=== PATIENT | male | born 1955 | race African-American/Black ===

== ENCOUNTER 2016-05-16 14:41 | Emergency (ER) | payer OTHER ==
[2016-05-16] MEDS ORDERED: Ketorolac INJ* 30 MG/ML 1 ML VIAL IV ONE (15:23)
[2016-05-16] MEDS ORDERED: HYDROmorphone TAB* 2 MG PO ONE (15:23)
[2016-05-16] MEDS ORDERED: Tamsulosin CAP* 0.4 MG PO ONE (15:23)
[2016-05-16] MEDS: NS 0.9% 1000 ML* 2,000 ML IV ONE ×2 (15:57→17:07)
--- NOTE | 2016-05-16 16:17 | UC ---
Abdominal Pain Male HPI - HPI Summary HPI Summary: Patient arrives to ED from correctional facility with history of renal calculi with CC of right sided back pain which radiates to right groin. Pain began approx 4 hours ago, is intermittent and severe. He denies known passage of stone. He denies urinary symptoms. He denies known fever, weakness, MORAN or feeling ill recently. Patient smokes. Patient with cardiac history with previous NV and diabetes. - History of Current Complaint Chief Complaint: EDFlankPain Stated Complaint: RT FLANK PAIN Time Seen by Provider: 05/16/16 15:17 Hx Obtained From: Patient Onset/Duration: Sudden Onset Timing: Intermittent Episodes Lasting: - several minutes Severity Initially: Moderate Severity Currently: Moderate Pain Intensity: 7 Pain Scale Used: 0-10 Numeric Location: Other - right flank Radiates to: RLQ Character: Burning, Colicy, Cramping Alleviating Factor(s): Nothing Associated Signs And Symptoms: Positive: Diaphoresis - Risk Factors Testicular Torsion: Negative Cardiac Risk Factors: Smoking - Allergies/Home Medications Allergies/Adverse Reactions: Allergies Allergy/AdvReac Type Severity Reaction Status Date / Time No Known Allergies Allergy Verified 05/11/13 12:13 PMH/Surg Hx/FS Hx/Imm Hx Endocrine History Of: Reports: Diabetes Cardiovascular History Of: Reports: Cardiac Disorders - MIx3, no stents, Myocardial Infarction Denies: Hypertension, Congestive Heart Failure, Deep Vein Thrombosis Respiratory History Of: Reports: COPD, Asthma GI/ History Of: Denies: Renal Disease Neurological History Of: Reports: CVA - 2006 weakness on right side, Seizures, Migraine Psychological History Of: Reports: Bipolar Disorder - Surgical History Surgical History: Yes Surgery Procedure, Year, and Place: Appy 1974, papillomas removal 11 surgeries, last one was in 1970 - Family History Known Family History: Positive: Unknown - Social History Occupation: Unemployed Lives: Alone - correctional facility Alcohol Use: None Substance Use Type: None, Other Smoking Status (MU): Former Smoker Type: Cigarettes Have You Smoked in the Last Year: No - Immunization History Most Recent Influenza Vaccination: 2014 Most Recent Tetanus Shot: unk Most Recent Pneumonia Vaccination: "up to date", received at 5 points Review of Systems Constitutional: Negative Respiratory: Negative Cardiovascular: Negative Gastrointestinal: Abdominal Pain Genitourinary: Negative, Other - right flank pain radiating to right inguinal canal Neurovascular: Negative Musculoskeletal: Negative Neurological: Negative Psychological: Negative All Other Systems Reviewed And Are Negative: Yes Physical Exam Triage Information Reviewed: Yes Appearance: Well-Nourished, Pain Distress Vital Signs: Initial Vital Signs Temp 98.4 F 05/16/16 14:47 Pulse 88 05/16/16 14:47 Resp 20 05/16/16 14:47 BP 156/88 05/16/16 14:47 Pulse Ox 99 05/16/16 14:47 Vital Signs Reviewed: Yes Eyes: Positive: Conjunctiva Clear Neck exam: Normal Neck: Positive: Supple, No Lymphadenopathy Respiratory: Positive: Chest non-tender, Lungs clear Cardiovascular: Positive: RRR Abdomen Description: Positive: No Organomegaly, Soft, CVA Tenderness (R) Bowel Sounds: Positive: Present Musculoskeletal Exam: Normal Musculoskeletal: Positive: Strength Intact Neurological Exam: Normal Neurological: Positive: Alert Psychological: Positive: Age Appropriate Behavior Skin Exam: Normal Diagnostics - Radiology No standard instances Xray Interpretation: No Acute Changes Radiology Interpretation Completed By: Radiologist - CT Abd Pain Male Course/Dx - Course Course Of Treatment: Patient arrives with right flank pain radiating to right suprapubic area and inguinal canal. Hx of renal calculi. Pain is intermittent and severe with colicky pain. CT abd/pelvis shows no renal calculi or hydronephrosis. Tamsulosin, toradol, dilaudid given for relief. Patient felt relief. Pain began again 30 minutes later with more dilauded given. Strained urine. UA is normal. D/t no calculi seen and normal urine, will send home with strainer, flomax and encouraged ibuprofen. - Differential Dx/Clinical Impression Differential Diagnosis/HQI/PQRI: Epididymitis, Renal Colic, Ureteral Stone Provider Diagnoses: flank pain Discharge - Discharge Plan Condition: Stable Disposition: HOME Prescriptions: Naproxen [Naproxen EC] 500 mg PO TID PRN #15 tab PRN Reason: Pain Tamsulosin CAP* [Flomax CAP*] 0.4 mg PO BEDTIME #14 cap Patient Education Materials: Renal Colic (ED) Referrals: Arturo GUERRERO,Jsoe Busch [Primary Care Provider] - Additional Instructions: You are able to take Naproxen 500mg three times daily as needed for pain and inflammation. Take Tamsoulosin medication at bedtime for 14 days. If symptoms persist, worsen, you develop fever or urinary symptoms, come back to ED.
[2016-05-16 16:19] LABS: Hematocrit 39 % (42-52); Hemoglobin 12.8 g/dl (14.0-18.0); Mean Corpuscular HGB Conc 33 g/dl (31-36); Mean Corpuscular Hemoglobin 27 pg (27-31); Mean Corpuscular Volume 83 fL (80-94); Mean Platelet Volume 6 um3 (7.4-10.4); Red Blood Count 4.69 10^6/ul (4.0-5.4); Red Cell Distribution Width 13 % (10.5-15); White Blood Count 5.5 10^3/ul (3.5-10.8)
[2016-05-16 16:26] LABS: Albumin 3.7 g/dL (3.2-5.2); BUN/Creatinine Ratio 8.8 (8-20); Calcium 8.9 mg/dL (8.6-10.3); EGFR African American 62.8 (>60); EGFR Non-African American 48.8 (>60); Globulin 3.4 g/dL (2-4); Potassium 3.9 mmol/L (3.5-5.0); Total Bilirubin 0.3 mg/dL (0.2-1.0); Total Protein 7.1 g/dL (6.4-8.9)
[2016-05-16] MEDS ORDERED: HYDROmorphone INJ* 1 MG/ML CARPUJECT SYRINGE IV SLOW PU ONE (17:19)
[2016-05-16] MEDS ORDERED: HYDROmorphone INJ* 2 MG/ML CARPUJECT SYRINGE IV SLOW PU ONE (17:19)
--- NOTE | 2016-05-16 18:50 | RAD ---
CLINICAL HISTORY: Right flank pain. Relevant surgical history includes appendectomy 1974. COMPARISON: Most recent CT examination is dated May 11, 2013 TECHNIQUE: Noncontrast CT examination of the abdomen and pelvis from the lung bases through the initial tuberosities. FINDINGS: VISUALIZED LUNG BASES: Hypoventilatory changes at the left lung base are similar in appearance to the previous CT examination. Otherwise the visualized lung bases are grossly clear. There is no pleural effusion. ABDOMEN AND PELVIS: Evaluation of the solid organs and vasculature is limited without intravenous contrast. A small hiatal hernia is noted. The liver, spleen, pancreas and adrenal glands are grossly normal in appearance. A stable calcified granulomas noted in the posterior superior portion of the spleen. The gallbladder is normal. The kidneys are normal in appearance without focal mass, calcification or signs of hydronephrosis. Evaluation of the gastrointestinal tract is limited in the absence of oral contrast. The small and large bowel are not distended.The patient's normal appendix is identified in the right lower quadrant. There is no gross retroperitoneal or mesenteric lymphadenopathy. The pelvic viscera is normal in appearance. A left-sided fat-containing hernias noted. The mildly calcified abdominal aorta and iliac arteries are normal in course and diameter. Degenerative changes include multilevel loss of intervertebral disc height involving the lower thoracic and lumbar spine, nonspecific straightening as well as multilevel marginal osteophyte formation.There are no sinister bone lesions. IMPRESSION: 1. No renal calculi or signs of hydronephrosis. 2. Chronic, degenerative and iatrogenic findings as described in the body the report, none of which wouldn't necessarily account for the patient's current symptoms.
[2016-05-16 19:16] LABS: Urine Bilirubin Negative (Negative); Urine Glucose Negative (Negative); Urine Nitrite Negative (Negative)
[2016-05-16 20:01] VITALS: BP 148/78
== END 2016-05-16 20:00 | disposition home or self-care (01) ==
LOC: ED 14:41
DX: R10.31 Right lower quadrant pain (principal); N20.0 Calculus of kidney; R61 Generalized hyperhidrosis; Z87.891 Personal history of nicotine dependence
CPT/HCPCS: 36415; 74176; 80053; 81003; 85025; 96374; 96375; 99283; A9270-GY; J1170; J1885

== ENCOUNTER 2017-08-20 10:52 | Emergency (ER) | payer OTHER ==
[2017-08-20] MEDS ORDERED: Ondansetron INJ* 2 MG/ML VIAL IV ONE (11:12)
[2017-08-20] MEDS ORDERED: NS 0.9% 1000 ML* 1,000 ML IV ONE ×2 (11:12→15:32)
[2017-08-20] MEDS ORDERED: Ondansetron ODT TAB* 4 MG ONE (11:36)
[2017-08-20] MEDS ORDERED: Metoclopramide IV* 5 MG/ML 2 ML VIAL IV ONE (11:38)
[2017-08-20] MEDS ORDERED: Metoclopramide IV* 5 MG/ML 2 ML VIAL ONE (11:39)
[2017-08-20 11:48] LABS: ABS Basophils 0 10^3/ul (0-0.2); ABS Eosinophils 0 10^3/ul (0-0.6); ABS Lymphocytes 0.1 10^3/ul (1.0-4.8); ABS Monocytes 0 10^3/ul (0-0.8); ABS Neutrophils 18.8 10^3/ul (1.5-7.7); ABS Nucleated RBC 0 10^3/ul; Eosinophil % 0 % (0-6); Hematocrit 40 % (42-52); Hemoglobin 13.2 g/dl (14.0-18.0); Lymphocyte % 0.6 % (25-47); Mean Corpuscular HGB Conc 34 g/dl (31-36); Mean Corpuscular Hemoglobin 28 pg (27-31); Mean Corpuscular Volume 83 fL (80-94); Nucleated Red Blood Cells % 0; Platelet Count 384 10^3/ul (150-450); Red Blood Count 4.75 10^6/ul (4.0-5.4); Red Cell Distribution Width 14 % (10.5-15); White Blood Count 18.9 10^3/ul (3.5-10.8)
[2017-08-20 11:53] LABS: EGFR Non-African American 40.2 (>60)
[2017-08-20] MEDS ORDERED: Iohexol 300* (CONTRAST) 10 ML SDV IV ONE (12:06)
--- NOTE | 2017-08-20 12:48 | RAD ---
HISTORY: Severe abdominal pain COMPARISONS: CT dated May 16, 2016 VIEWS: Frontal and left lateral decubitus views of the abdomen FINDINGS: BOWEL: There is a nonspecific bowel gas pattern, with nondilated small bowel gas noted. There is large amount of stool within colon. Oral contrast is noted within the colon. CALCULI: There are no abnormal calculi. BONES AND SOFT TISSUES: Degenerative changes are noted, with advanced osteoarthritis of the hips. OTHER FINDINGS: The lung bases are clear. There is no appreciable free intraperitoneal gas. IMPRESSION: NONOBSTRUCTIVE BOWEL GAS PATTERN. LARGE AMOUNT OF STOOL WITHIN THE COLON.
--- NOTE | 2017-08-20 14:17 | RAD ---
Indication: Abdominal pain. Contrast: Administered 141.3 ml of VISAPAQUE 320 mg/ml CT of the abdomen and pelvis was performed after oral and IV contrast administration. Coronal and sagittal reconstructed images were obtained. The lung bases demonstrate no pleural fluid, nodules or masses. Heart demonstrates no pericardial effusion. Liver is normal in size. No focal lesions or intrahepatic ductal dilatation is noted. The spleen is normal in size. Calcified granuloma is noted in the spleen. No adrenal masses are noted. Bilateral adrenal hyperplasia is noted. The pancreas demonstrates no mass or pancreatic duct dilatation. The kidneys demonstrate no hydronephrosis. Symmetric nephrograms are present. No focal masses are noted. No retroperitoneal lymphadenopathy is noted. No dilated loops of bowel are noted. Contrast in the right colon is noted. The urinary bladder demonstrates wall thickening. The prostate is enlarged. Multiple low density lesions are noted within the prostate extending to the right seminal vesicle. The possibility of prostate abscess should BE considered. There are small hydrocele is noted. Contrast is noted in the colon. No evidence of intestinal obstruction is noted. No evidence of obstructive uropathy is noted. IMPRESSION: Multiple low density areas within the prostate extending to the right seminal vesicle which is suspicious for prostate abscess. No other masses or fluid collections are noted. Findings discussed with Dr. Beltrán at 1413 hours.
[2017-08-20] MEDS ORDERED: Piperacillin/Tazobac ADVAN(*) 3.375 GM in NS 0.9% 100 ML* 100 ML IVPB ONE (14:37)
[2017-08-20] MEDS ORDERED: Magnesium Oxide TAB* 400 MG PO ONE (15:59)
--- NOTE | 2017-08-20 16:00 | ED ---
Joaquim Olguin Angela, scribed for Osiel Beltrán MD on 08/20/17 at 1128 . Abdominal Pain/Male - HPI Summary HPI Summary: This pt is a 62 y/o male presenting to [facility] via EMS from correctional facility c/o abdominal pain x2 days. Pt describes his abd pain as diffuse. He additionally notes nausea, vomiting, back pain and constipation. Pt states he has not been able to move his bowels for the past 2 days. Per nurse's note, at the [facility] the blood glucose was 354 and the pt was provided with Reg Insulin 8 units SQ. PMHx includes diabetes, HTN. Surgeries: appendectomy in 1975. - History of Current Complaint Chief Complaint: EDAbdPain Stated Complaint: ABD PAIN,HIGH BLOOD SUGAR Time Seen by Provider: 08/20/17 11:11 Hx Obtained From: Patient Onset/Duration: Lasting Days, Still Present Timing: Lasting Days Severity Currently: Severe Pain Intensity: 8 Pain Scale Used: 0-10 Numeric Location: Diffuse Radiates: Yes Radiates to: Back Aggravating Factor(s): Nothing Alleviating Factor(s): Nothing Associated Signs And Symptoms: Positive: Back Pain, Constipation, Nausea, Vomiting. Negative: Fever - Allergies/Home Medications Allergies/Adverse Reactions: Allergies Allergy/AdvReac Type Severity Reaction Status Date / Time No Known Allergies Allergy Verified 05/11/13 12:13 Home Medications: Home Medications Aspirin EC TAB* [Ecotrin EC Low Dose 81 MG*] 81 mg PO DAILY 08/20/17 [History Confirmed 08/20/17] Atorvastatin* [Lipitor*] 10 mg PO DAILY 08/20/17 [History Confirmed 08/20/17] Docusate CAP* [Colace Cap*] 200 mg PO DAILY 08/20/17 [History Confirmed 08/20/17 ] Lisinopril TAB* [Prinivil TAB*] 40 mg PO DAILY 08/20/17 [History Confirmed 08/20] Metoprolol Tartrate TAB* [Lopressor TAB*] 50 mg PO BID 08/20/17 [History Confirmed 08/20/17] Ranitidine TAB (NF) [Zantac TAB (NF)] 150 mg PO BID 08/20/17 [History Confirmed 08/20/17] Triamterene/HCTZ 37.5-25 MG* [Dyazide CAP*] 1 cap PO DAILY 08/20/17 [History Confirmed 08/20/17] carBAMazepine CHEW TAB(*) [TEGretol CHEW TAB(*)] 100 mg PO BID 08/20/17 [ History Confirmed 08/20/17] glipiZIDE TAB.XL* [Glucotrol XL*] 10 mg PO DAILY 08/20/17 [History Confirmed 07/04] PMH/Surg Hx/FS Hx/Imm Hx Endocrine/Hematology History: Reports: Hx Diabetes Denies: Other Endocrine/Hematological Disorders Cardiovascular History: Reports: Hx Angina, Hx Coronary Artery Disease, Hx Hypercholesterolemia, Hx Myocardial Infarction Denies: Hx Congestive Heart Failure, Hx Deep Vein Thrombosis, Hx Hypertension , Hx Valvular Heart Disease, Other Cardiovascular Problems/Disorders Respiratory History: Reports: Hx Asthma, Hx Chronic Obstructive Pulmonary Disease (COPD) Denies: Other Respiratory Problems/Disorders History: Denies: Hx Renal Disease Musculoskeletal History: Reports: Hx Arthritis, Hx Back Problems Denies: Other Musculoskeletal History Sensory History: Reports: Hx Contacts or Glasses - for distance, does not have them on him Opthamlomology History: Reports: Hx Contacts or Glasses - for distance, does not have them on him Neurological History: Reports: Hx Migraine, Hx Seizures Psychiatric History: Reports: Hx Bipolar Disorder, Hx Suicide Attempt - 2000, Hx Substance Abuse - 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 Denies: Other Psychiatric Issues/Disorders - Surgical History Surgery Procedure, Year, and Place: Appy 1974, papillomas removal 11 surgeries, last one was in 1970 Hx Anesthesia Reactions: No Infectious Disease History: No Infectious Disease History: Denies: Hx Tuberculosis, Traveled Outside the [place] in Last 30 Days - Family History Known Family History: Positive: Cardiac Disease - Mother: CAD Family History: Father: Lung CA - Social History Alcohol Use: None Substance Use Type: Reports: None Hx Tobacco Use: No - quit 1.5 yrs ago Smoking Status (MU): Former Smoker Type: Cigarettes Have You Smoked in the Last Year: No Review of Systems Negative: Fever Eyes: Negative ENT: Negative Gastrointestinal: Other - constipation Positive: Abdominal Pain, Vomiting, Nausea Musculoskeletal: Other - back pain Neurological: Negative All Other Systems Reviewed And Are Negative: Yes Physical Exam - Summary Physical Exam Summary: VITAL SIGNS: Reviewed. GENERAL: Patient is a well-developed and nourished male who is lying comfortable in the stretcher. Patient is not in any acute respiratory distress. HEAD AND FACE: Normocephalic and atraumatic. EYES: PERRLA, EOMI x 2, No injected conjunctiva. EARS: Hearing grossly intact. Ear canals and tympanic membranes are WNL. MOUTH: Oropharynx within normal limits. NECK: Supple, trachea is midline, no adenopathy, no JVD. CHEST: Symmetric, no tenderness at palpation LUNGS: Clear to auscultation bilaterally. No wheezing or crackles. CVS: RRR, S1 and S2 present, no murmurs or gallops appreciated. ABDOMEN: Soft. Diffuse abdominal pain with rebound and guarding. No signs of distention. Positive bowel sounds. No masses palpated. No abdominal bruit or pulsations. EXTREMITIES: FROM in all major joints, no edema, no cyanosis or clubbing. NEURO: Alert and oriented x 3. No acute neurological deficits. Speech is normal. SKIN: Diaphoretic and warm Triage Information Reviewed: Yes Vital Signs On Initial Exam: Initial Vitals Temp Pulse Resp BP Pulse Ox 98.7 F 94 28 110/67 94 08/20/17 10:56 08/20/17 10:56 08/20/17 10:56 08/20/17 10:56 08/20/17 10:56 Vital Signs Reviewed: Yes Diagnostics - Vital Signs Vital Signs Temp Pulse Resp BP Pulse Ox 08/20/17 10:56 98.7 F 94 28 110/67 94 - Laboratory Lab Results: Lab Results 08/20/17 08/20/17 08/20/17 Range/Units 11:25 11:25 11:26 WBC 18.9 H (3.5-10.8) 10^3/ul RBC 4.75 (4.0-5.4) 10^6/ul Hgb 13.2 L (14.0-18.0) g/dl Hct 40 L (42-52) % MCV 83 (80-94) fL MCH 28 (27-31) pg MCHC 34 (31-36) g/dl RDW 14 (10.5-15) % Plt Count 384 (150-450) 10^3/ul MPV 7.0 L (7.4-10.4) um3 Neut % (Auto) 99.1 H (38-83) % Lymph % (Auto) 0.6 L (25-47) % Sac % (Auto) 0.1 (0-7) % Eos % (Auto) 0 (0-6) % Baso % (Auto) 0.2 (0-2) % Absolute Neuts (auto) 18.8 H (1.5-7.7) 10^3/ul Absolute Lymphs (auto) 0.1 L (1.0-4.8) 10^3/ul Absolute Monos (auto) 0 (0-0.8) 10^3/ul Absolute Eos (auto) 0 (0-0.6) 10^3/ul Absolute Basos (auto) 0 (0-0.2) 10^3/ul Absolute Nucleated RBC 0 10^3/ul Nucleated RBC % 0 Sodium 131 L (139-145) mmol/L Potassium 3.8 (3.5-5.0) mmol/L Chloride 91 L (101-111) mmol/L Carbon Dioxide 27 (22-32) mmol/L Anion Gap 13 H (2-11) mmol/L BUN 28 H (6-24) mg/dL Creatinine 1.74 H (0.67-1.17) mg/dL Est GFR ( Amer) 51.7 (>60) Est GFR (Non-Af Amer) 40.2 (>60) BUN/Creatinine Ratio 16.1 (8-20) Glucose 335 H (70-100) mg/dL Lactic Acid 3.7 H* (0.5-2.0) mmol/L Calcium 9.0 (8.6-10.3) mg/dL Magnesium 1.7 L (1.9-2.7) mg/dL Total Bilirubin 1.20 H (0.2-1.0) mg/dL AST 18 (13-39) U/L ALT 32 (7-52) U/L Alkaline Phosphatase 173 H (34-104) U/L Total Creatine Kinase 46 (10-223) U/L C-Reactive Protein 102.33 H (< 5.00) mg/L B-Natriuretic Peptide ( - 100) pg/mL Total Protein 7.6 (6.4-8.9) g/dL Albumin 3.4 (3.2-5.2) g/dL Globulin 4.2 H (2-4) g/dL Albumin/Globulin Ratio 0.8 L (1-3) Lipase 72 (11.0-82.0) U/L 08/20/17 Range/Units 11:26 WBC (3.5-10.8) 10^3/ul RBC (4.0-5.4) 10^6/ul Hgb (14.0-18.0) g/dl Hct (42-52) % MCV (80-94) fL MCH (27-31) pg MCHC (31-36) g/dl RDW (10.5-15) % Plt Count (150-450) 10^3/ul MPV (7.4-10.4) um3 Neut % (Auto) (38-83) % Lymph % (Auto) (25-47) % Sac % (Auto) (0-7) % Eos % (Auto) (0-6) % Baso % (Auto) (0-2) % Absolute Neuts (auto) (1.5-7.7) 10^3/ul Absolute Lymphs (auto) (1.0-4.8) 10^3/ul Absolute Monos (auto) (0-0.8) 10^3/ul Absolute Eos (auto) (0-0.6) 10^3/ul Absolute Basos (auto) (0-0.2) 10^3/ul Absolute Nucleated RBC 10^3/ul Nucleated RBC % Sodium (139-145) mmol/L Potassium (3.5-5.0) mmol/L Chloride (101-111) mmol/L Carbon Dioxide (22-32) mmol/L Anion Gap (2-11) mmol/L BUN (6-24) mg/dL Creatinine (0.67-1.17) mg/dL Est GFR ( Amer) (>60) Est GFR (Non-Af Amer) (>60) BUN/Creatinine Ratio (8-20) Glucose (70-100) mg/dL Lactic Acid (0.5-2.0) mmol/L Calcium (8.6-10.3) mg/dL Magnesium (1.9-2.7) mg/dL Total Bilirubin (0.2-1.0) mg/dL AST (13-39) U/L ALT (7-52) U/L Alkaline Phosphatase (34-104) U/L Total Creatine Kinase (10-223) U/L C-Reactive Protein (< 5.00) mg/L B-Natriuretic Peptide 115 H ( - 100) pg/mL Total Protein (6.4-8.9) g/dL Albumin (3.2-5.2) g/dL Globulin (2-4) g/dL Albumin/Globulin Ratio (1-3) Lipase (11.0-82.0) U/L Result Diagrams: 08/20/17 11:25 08/20/17 11:25 Lab Statement: Any lab studies that have been ordered have been reviewed, and results considered in the medical decision making process. - Radiology Abdomen XR Xray Interpretation: Positive (See Comments) - IMPRESSION: Nonobstructive bowel gas pattern. Large amount of stool within the colon. Dr. Beltrán has reviewed this radiology report. Radiology Interpretation Completed By: Radiologist - CT Abdomen/Pelvis CT CT Interpretation: Positive (See Comments) - IMPRESSION: Multiple low density areas within the prostate extending to the right seminal vesicle which is suspicious for prostate abscess. No other masses or fluid collections are noted. Dr. Beltrán has reviewed this radiology report. CT Interpretation Completed By: Radiologist - EKG 11:16 Cardiac Rate: NL - at 91 bpm EKG Rhythm: Sinus Rhythm EKG Interpretation: No ST elevations. T wave inversion V4-V6. EKG Comparison: No Significant Change - Similar to prior EKG on 04/24/15. Abdominal Pain Fem Course/Dx - Course Assessment/Plan: This patient is a 62-year-old male who presents to the emergency room after the [facility] with a chief complaint of lower abdominal pain, nausea vomiting, chills but no fever. The patient has past medical history significant for seizure disorder, hypertension , dyslipidemia, and diabetes. He reports that also has been having constipation and no bowel movement since Sunday. Blood work shows a white blood cell count of 18.9, a normocytic normochromic anemia, neutrophils of 99.1. There is no bands. Sodium 131, slight renal insufficiency secondary to be on of 28 capping of 1.74. Glucose is 335 and lactic acid is 3.7. Magnesium is 1.7, CRP is 102.33. Initially the patient declined rectal exam. Since patient has history of an appendectomy many years ago I did an x-ray of the abdomen to rule out any type of small point of obstruction. Abdominal x-ray impression: Non-obstructive bowel gas pattern. Large amount of stool within the colon. Since the patient has an abnormal blood work and continued to have some pain with nausea and vomiting I decided to do an abdominopelvic CT which shows multiple low density areas within the prostate extending to the right seminal vesicles which is suspicious for prostate abscesses. No other masses or fluid collections are noted. The patient continued with IV fluids and also the patient was given Zosyn. I did send blood cultures and urinalysis which is pending. I would also add urine culture. Symptoms are this time we dont have a urology services I would have to transfer the patient to [facility] for further workup and management. I discussed the case with Lissette from the transfer center who or accepted the patient under Dr. Landeros services. Therefore, the patient will be transferred to [facility] ER. Before the patient was discharged the patient is hemodynamically stable. - Diagnoses Provider Diagnoses: Prostate abscess, Sepsis - Provider Notifications Discussed Care Of Patient With: Haja Bustamante Time Discussed With Above Provider: 15:06 Instructed by Provider To: Other - I discussed pt care with Dr. Bustamante, urologist, who reports pt needs to be transferred as there is no urology services today. [15:19] I discussed pt's case with Lou from the Transfer Center at [facility]. Dr. Landeros has accepted the pt for transfer to the [facility] Emergency Department. Discharge - Sign-Out/Discharge Documenting (check all that apply): Discharge/Admit/Transfer - Transfer - Discharge Plan Condition: Stable Disposition: TRANS HIGHER LVL OF CARE FAC Discharge Disposition Comment: [facility] [place] Referrals: Arturo GUERRERO,Jose Busch [Primary Care Provider] - - Billing Disposition and Condition Condition: STABLE Disposition: Trans Higher Lvl of Care Fac The documentation as recorded by the Joaquim lagunas Angela accurately reflects the service I personally performed and the decisions made by me, Osiel Beltrán MD.
[2017-08-20 16:35] LABS: Urine Appearance Cloudy; Urine Blood 1+ (Negative); Urine Color Yellow; Urine Ketones Negative (Negative); Urine Protein 1+(30 mg/dL) (Negative); Urine Specific Gravity 1.025 (1.010-1.030); Urine Urobilinogen Negative (Negative)
[2017-08-20] MEDS ORDERED: Morphine VIAL* 4 MG/ML VIAL (1 ml vial) IV ONE (16:37)
[2017-08-20 16:45] VITALS: BP 150/88
--- NOTE | 2017-08-21 05:55 | ED ---
Progress - Progress Note Progress Note: Pt's prelim aerobic blood cx reveals gram pos bacilli. Spoke w/ Vivien @ [facility]. Course/Dx - Diagnoses Provider Diagnoses: Prostate abscess, Sepsis - Provider Notifications Time Discussed With Above Provider: 15:06 Instructed by Provider To: Other - I discussed pt care with Dr. Bustamante, urologist, who reports pt needs to be transferred as there is no urology services today. [15:19] I discussed pt's case with Lou from the Transfer Center at [facility]. Dr. Landeros has accepted the pt for transfer to the [facility] Emergency Department. Discharge - Sign-Out/Discharge Documenting (check all that apply): Post-Discharge Follow Up - Discharge Plan Condition: Stable Disposition: TRANS HIGHER LVL OF CARE FAC Referrals: Arturo GUERRERO,Jose Busch [Primary Care Provider] - - Billing Disposition and Condition Condition: STABLE Disposition: Trans Higher Lvl of Care Fac
--- NOTE | 2017-08-23 07:17 | ED ---
Progress - Progress Note Progress Note: Pt's prelim aerobic blood cx reveals gram pos bacilli. Spoke w/ Vivien @ [facility]. UPDATE: FINAL CX REVEALS KLEBSIELLA PENUM W/ SENS - WILL FAX TO [facility]. [facility]. Course/Dx - Diagnoses Provider Diagnoses: Prostate abscess, Sepsis - Provider Notifications Time Discussed With Above Provider: 15:06 Instructed by Provider To: Other - I discussed pt care with Dr. Bustamante, urologist, who reports pt needs to be transferred as there is no urology services today. [15:19] I discussed pt's case with Lou from the Transfer Center at [facility]. Dr. Landeros has accepted the pt for transfer to the [facility] Emergency Department. Discharge - Sign-Out/Discharge Documenting (check all that apply): Post-Discharge Follow Up - Discharge Plan Condition: Stable Disposition: TRANS HIGHER LVL OF CARE FAC Referrals: Arturo GUERRERO,Jose Busch [Primary Care Provider] - - Billing Disposition and Condition Condition: STABLE Disposition: Trans Higher Lvl of Care Fac
== END 2017-08-20 16:43 | disposition short-term general hospital (02) ==
LOC: ED 10:52
DX: A41.9 Sepsis, unspecified organism (principal); N41.2 Abscess of prostate; B96.1 Klebsiella pneumoniae [K. pneumoniae] as the cause of diseases classified elsewhere; R10.30 Lower abdominal pain, unspecified; R11.2 Nausea with vomiting, unspecified; G40.909 Epilepsy, unspecified, not intractable, without status epilepticus; I10 Essential (primary) hypertension; E78.5 Hyperlipidemia, unspecified; E11.9 Type 2 diabetes mellitus without complications; Z79.84 Long term (current) use of oral hypoglycemic drugs; Z87.891 Personal history of nicotine dependence
CPT/HCPCS: 36415; 74019; 74177; 80053; 81003; 81015; 82550; 83605; 83690; 83735; 83880; 85025; 86140; 87040; 87077; 87186; 87205; 93005; 96361; 96374; 96375; 99283; A9270-GY; J2270; J2543; J2765; Q9967

== ENCOUNTER 2017-12-11 09:56 | Inpatient (IN) | payer OTHER ==
--- NOTE | 2017-12-11 10:15 | ED ---
Neurological HPI - HPI Summary HPI Summary: A 62 y/o M from [address] [place] [address] halfway is BIBA and police to ED with c/o R-sided weakness onset 0630. Pert PMHx: TIA seven years ago, HTN, DM. Pt states he was walking back to his cell after breakfast and he felt his low back pain worsening. He had sudden-onset, R-sided weakness, and the inmates next to him caught him. He did not have LOC or head trauma. He states that in the [facility], he felt the the nurse touch his R foot, but did not feel her touch his R leg. Associated sx: MORAN, mild CP, twitch in jaw, dry mouth, R-sided facial droop resolved upon arrival. Denies vision changes. Pt is R-hand dominant. He did not get his morning medications. He is not on anticoagulants. Dr. Spence at bedside at 1013. ED provider met pt at charge desk immediately upon arrival. - History of Current Complaint Stated Complaint: STROKE LIKE SYMPTOMS Time Seen by Provider: 12/11/17 09:57 Hx Obtained From: Patient Onset/Duration: Sudden Onset, Started hours ago, Still Present Timing: Constant Onset Severity: Severe Current Severity: Severe Character: Motor Weakness - R-side Episode Lasting: Hours Associated Signs and Symptoms: Positive: Headache, Chest Pain. Negative: Visual Changes, Loss of Consciousness TPA Considered: Yes Related Hx: Seizure - Additional Pertinent History Primary Care Physician: KAREN - Allergy/Home Medications Allergies/Adverse Reactions: Allergies Allergy/AdvReac Type Severity Reaction Status Date / Time No Known Allergies Allergy Verified 12/11/17 11:18 Home Medications: Home Medications Atorvastatin* [Lipitor*] 40 mg PO DAILY 12/11/17 [History Confirmed 12/11/17] Metoprolol Tartrate TAB* [Lopressor TAB*] 50 mg PO BID 12/11/17 [History Confirmed 12/11/17] Oxybutynin TAB* [Ditropan TAB*] 5 mg PO BID 12/11/17 [History Confirmed 12/11/17 ] Tamsulosin CAP* [Flomax CAP*] 0.4 mg PO QPM 12/11/17 [History Confirmed 12/11/17 ] amLODIPine TAB* [Norvasc 5 mg TAB*] 10 mg PO DAILY 12/11/17 [History Confirmed 09/25/18] PMH/Surg Hx/FS Hx/Imm Hx Previously Healthy: No Endocrine/Hematology History: Reports: Hx Diabetes Denies: Other Endocrine/Hematological Disorders Cardiovascular History: Reports: Hx Angina, Hx Coronary Artery Disease, Hx Hypercholesterolemia, Hx Hypertension, Hx Myocardial Infarction Denies: Hx Congestive Heart Failure, Hx Deep Vein Thrombosis, Hx Valvular Heart Disease, Other Cardiovascular Problems/Disorders Respiratory History: Reports: Hx Asthma, Hx Chronic Obstructive Pulmonary Disease (COPD) Denies: Other Respiratory Problems/Disorders History: Denies: Hx Renal Disease Musculoskeletal History: Reports: Hx Arthritis, Hx Back Problems Denies: Other Musculoskeletal History Sensory History: Reports: Hx Contacts or Glasses - for distance, does not have them on him Opthamlomology History: Reports: Hx Contacts or Glasses - for distance, does not have them on him Neurological History: Reports: Hx Migraine, Hx Seizures, Hx Transient Ischemic Attacks (TIA) - seven years ago Psychiatric History: Reports: Hx Bipolar Disorder, Hx Suicide Attempt - 2000, Hx Substance Abuse - 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 Denies: Other Psychiatric Issues/Disorders - Surgical History Surgery Procedure, Year, and Place: Appy 1974, papillomas removal 11 surgeries, last one was in 1970 Hx Anesthesia Reactions: No Infectious Disease History: Denies: Hx Tuberculosis, Traveled Outside the [place] in Last 30 Days - Family History Known Family History: Positive: Cardiac Disease - Mother: CAD Family History: Father: Lung CA - Social History 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 Negative: Sore Throat Positive: Chest Pain Negative: Shortness Of Breath, Cough Negative: Abdominal Pain, Vomiting, Nausea Negative: dysuria, hematuria Negative: Myalgia, Edema Negative: Rash Neurological: Other - pos: R-sided facial droop resolved upon arrival; neg: dizziness Positive: Headache All Other Systems Reviewed And Are Negative: Yes Physical Exam - Summary Physical Exam Summary: Constitutional: Well-developed, Well-nourished, Alert. (-) Distressed Skin: Warm, Dry HENT: Normocephalic; Atraumatic Eyes: Conjunctiva normal Neck: Musculoskeletal ROM normal neck. (-) JVD, (-) Stridor, (-) Tracheal deviation Cardio: Rhythm regular, rate normal, Heart sounds normal; Intact distal pulses; The pedal pulses are 2+ and symmetric. Radial pulses are 2+ and symmetric. (-) Murmur Pulmonary/Chest wall: Effort normal. (-) Respiratory distress, (-) Wheezes, (-) Rales Abd: Soft. (-) Tenderness, (-) Distension, (-) Guarding, (-) Rebound Musculoskeletal: (-) Edema Lymph: (-) Cervical adenopathy Neuro: Alert, Oriented x3, Strength normal, Cranial nerves II-XII are grossly intact. (-) Dysmetria, (-) Nystagmus, (-) Ataxia by finger to nose testing. Diminished two-point discrimination. R extractions technician weakness. R leg weakness. No facial droop. Unable to resist gravity in RUE and RLE. Psych: Mood and affect Normal Triage Information Reviewed: Yes Vital Signs Reviewed: Yes - Kemar Coma Scale Best Eye Response: 4 - Spontaneous Best Motor Response: 6 - Obeys Commands Best Verbal Response: 5 - Oriented Coma Scale Total: 15 Diagnostics - Laboratory Result Diagrams: 12/11/17 10:07 12/11/17 10:07 Lab Statement: Any lab studies that have been ordered have been reviewed, and results considered in the medical decision making process. - Radiology CXR Xray Interpretation: No Acute Changes - No radiographic evidence for acute cardiopulmonary abnormality on this portable CXR. ED provider has reviewed this report. Radiology Interpretation Completed By: Radiologist - CT BRAIN CT CT Interpretation: No Acute Changes - IMPRESSION: 1. No CT evidence of acute intracranial hemorrhage, territorial infarction or other acute intracranial abnormality. 2. Mild to moderate paranasal sinus mucosal disease. Absence of acute findings were discussed with Dr. Corbin over the telephone at 1025 hours on December 11, 2017. ED provider has reviewed this report. CT Interpretation Completed By: Radiologist Brain CT 2 CT Interpretation: No Acute Changes - : No evidence for gross acute infarct, mass effect or hemorrhage. ED provider has reviewed this report. CT Interpretation Completed By: Radiologist ABD/PEL CT CT Interpretation: No Acute Changes - No evidence of intraperitoneal or retroperitoneal hematoma is noted. Aorta and inferior vena cava are unremarkable. No hydronephrosis is noted. Bilateral adrenal hyperplasia is noted. ED provider has reviewed this report. CT Interpretation Completed By: Radiologist Head CTA CT Interpretation: No Acute Changes - Unremarkable CTA of the neck and head. No branch occlusion or aneurysmal dilatation is noted. ED provider has reviewed this report. - EKG 1024 Cardiac Rate: Bradycardia - 58bpm EKG Rhythm: Sinus Bradycardia EKG Interpretation: no STEMI NIH Scale - NIH Scale Level of Consciousness: Alert/Keenly Responsive Ask Patient the Month and His/Her Age: Both Correct Ask Pt to Open/Close Eyes and Food And Beverage Operations Manager/Release Non-Paretic Hand: Both Correctly Best Gaze (Only Horizontal Eye Movement): Normal Visual Field Testing: No Visual Loss Facial Paresis-Pt to Smile & Close Eyes or Grimace Symmetry: Normal/Symmetrical Motor Function - Right Arm: No Effort Against [place] Motor Function - Left Arm: No Drift-Holds 10 Seconds Motor Function - Right Leg: No Effort Against [place] Motor Function - Left Leg: No Drift-Holds 10 Seconds Limb Ataxia-Must be out of Proportion to Weakness Present: Absent Sensory (Use Pinprick to Test Arms/Legs/Trunk/Face): Pinprick Less on Affected Best Language (Describe Picture, Name Items): No Aphasia Dysarthria (Read Several Words): Normal Extinction and Inattention: No Abnormality Total Score: 7 Re-Evaluation - Re-Evaluation 1 Re-Evaluation Time: 11:25 Change: Worse Comment: Pt c/o severe MORAN. No changes in PE neuro exam. 2 Re-Evaluation Time: 11:36 Change: Worse Comment: Pt is c/o tightness and lip numbness. Course/Dx - Course Course Of Treatment: A 62 y/o M from [place] [facility] is BIBA and police to ED with c/o R-sided weakness onset 0630. Pert PMHx: TIA seven years ago, HTN, DM. UA results show 1+ protein, 1+ bilirubin, 2+ glucose and ascorbic acid. Imaging diagnostics were unremarkable. Critical care time [address] Galvan, hospitalist, will admit pt. - Diagnoses Provider Diagnoses: Right sided weakness, Hypertensive emergency During the Visit The Following Alert/Code Occurred: Code Vxfn - 1524 - Critical Care Time Critical Care Time: 30-74 min - 60 mins Discharge - Sign-Out/Discharge Documenting (check all that apply): Patient Departure - ADM - Discharge Plan Disposition: ADMITTED TO [facility] - Attestation Statements Document Initiated by Scribe: Yes Documenting Scribe: Roby Armstrong Provider For Whom Scribe is Documenting (Include Credential): Dr. Mike Corbin MD Scribe Attestation: Roby Olguin, scribed for Dr. Mike Corbin MD on 12/11/17 at 1456. Consult Consult: AT 1025: Consult with Dr. Hooper, radiology Brain CT is still pending. At 1027: Consult with Dr. Spence, neuro At 1239: Consult with Dr. Galvan, hospitalist Will accept pt for admission
[2017-12-11] MEDS ORDERED: Labetalol IV* 5 MG/ML 20 ML VIAL IV PUSH ONE (10:16)
[2017-12-11] MEDS ORDERED: Alteplase* 100 MG VIAL IV ONE ×2 (10:17)
[2017-12-11 10:19] LABS: ABS Basophils 0 10^3/ul (0-0.2); ABS Eosinophils 0 10^3/ul (0-0.6); ABS Lymphocytes 1.6 10^3/ul (1.0-4.8); ABS Monocytes 0.4 10^3/ul (0-0.8); ABS Neutrophils 3.3 10^3/ul (1.5-7.7); ABS Nucleated RBC 0 10^3/ul; Eosinophil % 0.2 % (0-6); Hematocrit 42 % (42-52); Hemoglobin 13.8 g/dl (14.0-18.0); Lymphocyte % 29.7 % (25-47); Mean Corpuscular HGB Conc 33 g/dl (31-36); Mean Corpuscular Hemoglobin 28 pg (27-31); Mean Corpuscular Volume 84 fL (80-94); Mean Platelet Volume 6.7 um3 (7.4-10.4); Nucleated Red Blood Cells % 0.1; Platelet Count 275 10^3/ul (150-450); Red Blood Count 4.99 10^6/ul (4.00-5.40); Red Cell Distribution Width 13 % (10.5-15); White Blood Count 5.3 10^3/ul (3.5-10.8)
[2017-12-11] MEDS ORDERED: Alteplase* 100 MG VIAL ONE (10:20)
[2017-12-11 10:30] LABS: INR 0.92 (0.77-1.02)
--- NOTE | 2017-12-11 10:36 | RAD ---
INDICATION: Acute neurologic changes. COMPARISON: None. TECHNIQUE: Contiguous axial sections of the brain were obtained from the skull base to the vertex without contrast. FINDINGS: The ventricles, cisterns and sulci are within normal limits. Incidentally noted is a cavum septum pellucidum. The campbell-white matter differentiation is adequately maintained and there is no sulcal effacement. No significant focal abnormality or mass effect is present. There is no evidence for intracranial hemorrhage. No significant focal osseous abnormality is present. There are inspissated secretions in the bilateral maxillary sinuses as well as the sphenoid sinuses. The ethmoid air cells are well aerated. The frontal sinuses are well-aerated. The mastoid air cells are well aerated bilaterally. IMPRESSION: 1. No CT evidence of acute intracranial hemorrhage, territorial infarction or other acute intracranial abnormality. 2. Mild to moderate paranasal sinus mucosal disease. Absence of acute findings were discussed with Dr. Corbin over the telephone at 1025 hours on December 11, 2017.
[2017-12-11 10:40] LABS: EGFR Non-African American 58.4 (>60)
--- NOTE | 2017-12-11 10:56 | RAD ---
INDICATION: Left-sided weakness COMPARISON: CXR 04/22/15 TECHNIQUE: Single AP portable view of the chest was obtained. FINDINGS: Image quality is compromised due to the relative inferiority of a portable chest x-ray. The heart and mediastinum exhibit normal size and contour. The lungs are grossly clear. There is no evidence of a large pleural effusion. Visualized bones are normal for the patient's age. IMPRESSION: No radiographic evidence for acute cardiopulmonary abnormality on this portable chest x-ray.
[2017-12-11] MEDS ORDERED: diPHENhydraMINE IV* 50 MG/ML 1 ml VIAL (BENADRYL) SLOW PUSH ONE (11:37)
[2017-12-11] MEDS ORDERED: diPHENhydraMINE IV* 50 MG/ML 1 ml VIAL (BENADRYL) ONE (11:38)
[2017-12-11] MEDS: Metoclopramide IV* 5 MG/ML 2 ML VIAL IV SLOW PU ONE ×2 (11:44→11:45)
[2017-12-11 11:52] LABS: Urine Appearance Clear; Urine Color Yellow; Urine Urobilinogen Negative (Negative)
[2017-12-11 11:53] LABS: Urine Blood Negative (Negative); Urine Ketones Negative (Negative); Urine Protein 1+(30 mg/dL) (Negative)
[2017-12-11] MEDS ORDERED: Iodixanol* (CONTRAST) 320 MG/ML 100 ML SDV IV ONE (11:59)
--- NOTE | 2017-12-11 12:20 | RAD ---
INDICATION: Headache status post TPA. COMPARISON: Comparison is made with a prior CT of the brain from approximately 2 hours earlier. TECHNIQUE: Contiguous axial sections of the brain were obtained from the skull base to the vertex without contrast. FINDINGS: The ventricles, cisterns and sulci are enlarged consistent with age-related atrophy. No significant focal abnormality or mass effect is seen. There is no evidence for hemorrhage. There are 1 cm nodular densities in both maxillary sinuses most consistent with mucous retention cysts or polyps. The visualized portion of the paranasal sinuses and mastoid air cells otherwise appear clear. IMPRESSION: NO EVIDENCE FOR GROSS ACUTE INFARCT, MASS EFFECT OR HEMORRHAGE.
--- NOTE | 2017-12-11 12:25 | RAD ---
Indication: Abdominal pain. Contrast: 120 mL of Visipaque 320 was given according to hospital protocol. CT of the abdomen and pelvis was performed after oral and IV contrast administration. Coronal and sagittal reconstructed images were obtained. Findings are compared with previous exam dated 418. Lung bases demonstrate no pleural fluid, nodules or masses. Heart is of normal size without evidence of pericardial effusion. Liver is normal in size. It is diffusely decreased in density consistent with hepatic steatosis. The spleen is normal in size. Calcified granuloma is noted in the spleen. Bilateral adrenal hyperplasia is noted. Nodular hyperplasia is noted of both adrenal glands. The kidneys demonstrate symmetric nephrograms without hydronephrosis although small cortical cysts are noted in both kidneys. Nonobstructing calculi is noted in the midportion of left kidney. Aorta and inferior vena cava are unremarkable. The pancreas demonstrates no mass or pancreatic duct dilatation. No retroperitoneal hematoma is noted. CT of the pelvis demonstrates no pelvic adenopathy. Common and external iliac arteries are grossly unremarkable although the common iliac arteries are somewhat tortuous. Urinary bladder is unremarkable. Prostate and seminal vesicles are unremarkable. The colon is filled with stool. No evidence of pelvic hematoma is noted. IMPRESSION: No evidence of intraperitoneal or retroperitoneal hematoma is noted. Aorta and inferior vena cava are unremarkable. No hydronephrosis is noted. Bilateral adrenal hyperplasia is noted.
--- NOTE | 2017-12-11 12:32 | RAD ---
Indication: Headache after TPA. Contrast: Administered 80 ml of VISAPAQUE 320 mg/ml CTA of the neck and head was performed after IV contrast administration. Coronal and sagittal reconstructed images were obtained. The origins of the great vessels are unremarkable. Left common carotid artery and right common carotid artery demonstrates no intimal wall thickening. No evidence of calcifications are noted at the origins of the internal carotid arteries bilaterally. Cervical carotid arteries demonstrates normal caliber throughout. The vertebral arteries demonstrate dominant right vertebral artery with a small left vertebral artery. No calcifications are noted. No evidence of change in caliber of the vertebral arteries are noted. Intracranial circulation demonstrates intracavernous portion of the internal carotid arteries to be unremarkable. The anterior and middle cerebral arteries are unremarkable. No branch occlusion or aneurysmal dilatation is identified. Vertebral arteries, basilar artery and posterior cerebral arteries are grossly unremarkable. No aneurysmal dilatation is noted. No branch occlusion is noted. The visualized brain demonstrates no evidence of intracranial hemorrhage or masses. Scattered lymph nodes are noted in the soft tissues of the neck. The lung apices are grossly unremarkable. IMPRESSION: Unremarkable CTA of the neck and head. No branch occlusion or aneurysmal dilatation is noted.
[2017-12-11] MEDS ORDERED: Dextrose 50% Syringe 50 ML* 25 GM/50 ML SYRINGE IV PUSH PRN (12:54)
[2017-12-11] MEDS ORDERED: Acetaminophen TAB* 325 MG PO PRN (13:20)
--- NOTE | 2017-12-11 15:20 | RAD ---
Indication: RIGHT side weakness that began around 0630 hours today. Received TPA. Comparison: Noncontrast head CT and CT angiogram of the same date. Technique: [employer] [place] 1.5 Alicia [id number] with GEM suite. MRI brain without contrast. Report: Diffusion series is negative for acute or subacute ischemia. Susceptibility series is negative for stigmata of hemosiderin deposition to indicate previous hemorrhage. Unremarkable cerebral sulci, cerebellar fissures, and basal cisterns. Negative for ventriculomegaly. Normal variant persistent cavum septum pellucidum and vergae. Normal patterns of signal intensity throughout the cerebrum and posterior fossa on the T1 and T2-weighted series. No intra or extra-axial lesions or fluid collections evident. Preserved major intracranial flow-voids. Unremarkable orbital contents. Unremarkable calvarium and skull base. Small maxillary and sphenoid sinus mucous retention cysts or polyps noted. Negative for paranasal sinus fluid levels. Clear mastoid air spaces. Unremarkable scalp. IMPRESSION: #. No evidence for acute or subacute ischemia. #. No acute abnormality of the brain evident.
[2017-12-11] MEDS: amLODIPine TAB* 5 MG PO SCH (15:36)
[2017-12-11] MEDS: Insulin LISPRO* 1 UNITS UNIT SUBCUT SCH (18:01)
[2017-12-11] MEDS: Tamsulosin CAP* 0.4 MG PO SCH (18:01)
[2017-12-11] MEDS: carBAMazepine CHEW TAB(*) 100 MG PO SCH (20:15)
[2017-12-11] MEDS: Oxybutynin TAB* 5 MG PO SCH (20:15)
[2017-12-11] MEDS: Famotidine TAB* 20 MG PO SCH (20:15)
--- NOTE | 2017-12-11 21:20 | CONS ---
NEUROLOGY CONSULTATION: DATE OF CONSULT: 12/11/17 LOCATION: He is in the emergency room to be admitted. REFERRING PHYSICIAN: Dr. Corbin. CHIEF COMPLAINT: Right-sided weakness. HISTORY OF PRESENT ILLNESS: Garrison Andres is a 62-year-old, right-handed inmate at [facility] who said that he was up this morning around 6:30 with increase in his usual back pain. He was able to get to "[facility]" with his wheelchair. While there, which was sometime between 7:00 and perhaps 7:15, he developed right-sided weakness. He was brought into the emergency room. Last known well was therefore approximately 7 a.m. In the emergency room, he exhibited right- sided weakness. A code campbell was called. At the bedside, he denies headache, any recent surgeries, anticoagulants, or any recent trauma. He says he had a "small stroke" sometime in the past. He has a history of a seizure disorder and according to records a postictal paralysis with right-sided weakness. I had seen no actual hospital records from this institution regarding that particular history. He says his last seizure was about 3 years ago. He said he used to have frequent seizures and they put him on topiramate and he has not had a seizure since. PAST MEDICAL HISTORY: Notable for noncardiac chest pain, diabetes, hypertension , seizure disorder, history of asthma. MEDICATIONS: On admission consist of: 1. Lisinopril 40 mg p.o. q. day. 2. Aspirin 81 mg p.o. q. day. 3. Lipitor 40 mg p.o. q. day. 4. Maxzide 1 p.o. q. day. 5. Lopressor 50 mg p.o. b.i.d. 6. Zantac 150 mg p.o. b.i.d. 7. Glucotrol XL 10 mg p.o. b.i.d. 8. Norvasc 10 mg q. day. 9. Ditropan 5 mg p.o. b.i.d. 10. Flomax 0.4 mg p.o. q. day. 11. Tegretol is listed on the sheet, [facility], but he says he is on topiramate. ALLERGIES: He does not have any drug allergies. REVIEW OF SYSTEMS: Negative for falls, although he almost collapsed this morning, but other inmates caught him. He has not had seizure in 3 years. He has had numerous admissions for cardiac chest pain and had a cardiac catheterization on 01/21/15 by 1 report interpreted he has normal coronary arteries. He denies headache. He says his vision is a "little blurry." He has not noticed any change in speech. He has chronic low back pain, for which he uses a wheelchair. There is no current chest pain. No current gastrointestinal complaints. PHYSICAL EXAM: He is little overweight and well hydrated. Blood pressure at the bedside initially was 204/129, but after labetalol came down to 150/104. Heart rates in the 70s and in sinus on the monitor. Temperature is 98. Respiratory rate is 16 and oxygen saturation is 99% on room air. Heart is in a regular rhythm without murmurs. There are no cervical bruits. Extremities are warm. Neurological Exam: Pupils react equally from 4 to 2.5 mm to light. Eye movements are full. Funduscopic exam is normal. Visual snow are notable for right hemianopsia. Facial musculature is symmetric. Facial sensation to pin and light touch is reported as diminished on the right side. There is no dysarthria. Hearing is intact. On motor exam, he is not able to move the right arm. He very weakly raises the right leg up off an inch or so from the gurney. He has increased muscle tone in his right arm and right leg until I told him to relax it. He stiffens the right leg initially, but then relaxes it. When I hold up his right leg and have him attempted dorsiflex his foot, he is able to keep the leg extended. When I hold up his arm and asked him to squeeze my hand with his hand on the right, he is able to keep the arm extended. There is no downward pressure on the left heel with attempts to raise the right leg. The stiffening of the right leg and downward pressure with the right heel when he raises the left leg normally. He has normal strength on the left side. He reports diminished light touch and pin discrimination in the entire right side including arm and leg. Plantar responses are flexor bilaterally. Finger taps are normal in the left hand and not able to perform in the right. He is alert and perfectly oriented. He is able to provide reasonably good history. Language is fluent. Attention, concentration, and fund of knowledge are adequate. DIAGNOSTIC STUDIES/LAB DATA: Includes a CT of the brain, which I reviewed with him, which looks normal. The final report from the radiologist is not yet in the computer record. His blood work is not yet back from the lab. His fingerstick blood glucose was 221 at the facility. He does have lab test from when he was in the emergency room on 11/21/17 notable for 1+ rbc's in his urine. There are also lab tests from 09/28/17 where CBC was notable for mild anemia with a hemoglobin of 12.5, platelet count 268,000. 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 I discussed the risks and benefits of t-PA with Mr. Andres including about 6% chance of serious hemorrhaging, a 20 % to 30% chance of an improved stroke outcome with minimal to no deficits. He stated understanding of the risks and benefits and elected to proceed. We will go ahead with intravenous t-PA. I will obtain a CT angiogram next. He will be admitted per post IV t-PA protocol to the intensive care unit. Aspirin will be withheld for 24 hours. His blood pressure will be controlled with systolic no higher than 180 and diastolic no higher than 105. He will end up getting an MRI scan of the brain, echocardiogram, as well as CT angiogram. Further recommendations depend upon his hospital course and the results of his studies. [id number]/[id number] #: [id number] [place]
--- NOTE | 2017-12-11 22:34 | HP ---
CC: Kailee Craig NP at [facility]; Josep Spence MD * HISTORY AND PHYSICAL: DATE OF ADMISSION: 12/11/17 PRIMARY CARE PROVIDER: Kailee Craig NP, at [facility]. ATTENDING PHYSICIAN: Humberto Galvan MD * (dictated by Adelina Stoll NP) CHIEF COMPLAINT: Right-sided weakness. HISTORY OF PRESENT ILLNESS: Mr. Andres is a 62-year-old male with past medical history significant for hyperlipidemia, hypertension, diabetes mellitus, seizure , "mild" CVA with baseline right sided weakness, coronary artery disease, status post CA, asthma, and BPH who states that he was in his usual state of health this morning when he awoke. He states that he woke up with back pain. He does suffer from chronic back pain and is mostly wheelchair bound. He stated he did some stretches and this did not improve. He went to breakfast at the facility where he reports his mouth started feeling funny. He went back to his cell and on his way, he developed a weird feeling in his right side that progressed to the loss of movement in his right side. He reports not falling, but was caught by other inmates. He reported not being able to feel his right leg, only feeling pressure once he arrived to the [facility]. He states that the onset of this was approximately 6:30 this morning. He denies any recent fevers, chills. He has blurry vision at baseline if he is not wearing his glasses. He denied any changes in his speech. Due to his symptoms, EMS was called, he was brought to the emergency room for further evaluation. While in the emergency room, the patient was noted to have right-sided weakness. He was seen in consultation by Dr. Spence with Neurology. It was felt that due to the patient's risk factors with an NIH score of 9 that he was a tPA candidate and he received IV tPA. At almost the completion of his tPA infusion, he developed a headache. He also felt like his throat was feeling funny and maybe his lips were swollen. He was given Benadryl for these symptoms. He said it hurts when he talks, like he has a sore throat. He also reports angina, chest pain at baseline that he reports as being midsternal. He states this has not changed. He also reports some shortness of breath at rest that started this morning. Additionally after the tPA infusion, he was reporting a dull right lower quadrant abdominal discomfort. He has also had some nausea earlier today that resolved upon assessment. The patient had a CT initially showing no findings. With his complaint of headache post tPA, he had a repeat CT showing no acute findings. He had a head CTA with no acute findings. Additionally, he had an abdomen and pelvis CT showing no acute findings and the hospitalists were asked to evaluate the patient for admission. PAST MEDICAL HISTORY: 1. Diabetes mellitus. 2. Hyperlipidemia. 3. Hypertension. 4. Seizures with history of Hiren's paralysis. 5. Cerebrovascular accident with right sided weakness. 6. Coronary artery disease status post CA. 7. Asthma. 8. BPH. 9. Chronic Kidney Disease, stage 3. PAST SURGICAL HISTORY: 1. Status post appendectomy. 2. Status post cardiac catheterization. 3. Status post polypectomy. MEDICATIONS: Home medications include: 1. Flomax 0.4 mg oral every evening. 2. Glipizide XL 10 mg oral twice daily. 3. Tegretol 100 mg oral twice daily. 4. Amlodipine 10 mg oral daily. 5. Oxybutynin 5 mg oral twice daily. 6. Atorvastatin 40 mg oral daily. 7. Dyazide 37.5/25 one capsule oral daily. 8. Zantac 150 mg oral twice daily. 9. Metoprolol tartrate 50 mg oral twice daily. 10. Lisinopril 40 mg oral daily. 11. Aspirin 81 mg oral daily. ALLERGIES: No known drug allergies. FAMILY HISTORY: The patient's mother with a history of coronary artery disease. The patient's mother and father have a history of diabetes mellitus. The patient's father with a history of lung cancer. SOCIAL HISTORY: The patient reports smoking 1-1/2 cigarettes a day. He reports smoking since age 15 or 16 and up to 2 packs a day. He denies alcohol or recreational drug use. His mother, Georgia Hsu, will be his surrogate decision maker in the event he is unable to make decisions for himself. REVIEW OF SYSTEMS: I performed an 11-point review of systems. All the pertinent positives and negatives are mentioned in the history of present illness. The remaining review of systems is negative. PHYSICAL EXAMINATION GENERAL APPEARANCE: The patient is alert, pleasant, appears to be in no acute distress. VITAL SIGNS: Temperature 98.1, heart rate 69, respiratory rate 17, O2 sat 96% on room air, blood pressure 130/85. HEENT: Normocephalic, atraumatic. Pupils are equal and reactive to light. Extraocular movements are intact. RESPIRATORY: There is no accessory muscle use. Lungs are clear to auscultation bilateral. CARDIOVASCULAR: Regular rate and rhythm. S1, S2 present. There are no murmurs , rubs, or gallops heard. ABDOMEN: Soft, large, nondistended. There is tenderness in the left middle quadrant upon palpation once. I was unable to reproduce this specific area of tenderness upon palpating again. EXTREMITIES: There is no lower extremity edema. DP and PT pulses are 1+ and symmetric. MUSCULOSKELETAL: There is no clubbing or cyanosis noted. The patient has right upper extremity weakness. He is unable to lift the arm off the bed but once the arm is in the air, he is able to hold this with slight drift. He has a weaker handgrip on the left. He has a weaker dorsi and plantarflexion on the right when compared to the left. He is able to pick the left lower extremity off the bed without difficulty. He had some difficulty getting the right lower extremity off the bed but once it was elevated, he had no difficulty holding it up. NEUROLOGICAL: There was no facial drooping noted. His smile appeared to be symmetric. He may have had a very subtle slight right nasolabial fold flattening. He has no nystagmus. The patient is noted to have right-sided weakness. The patient is alert and oriented x4. Cranial nerves II through XII are grossly intact. PSYCHOLOGICAL: The patient is calm and cooperative. SKIN: There are no rashes or abnormalities seen. DIAGNOSTIC STUDIES/LABORATORY DATA: Sodium 136, potassium 4.2, chloride 102, CO2 of 28, BUN 18, creatinine 1.26, glucose 228. White blood cell count 5.3, hemoglobin 13.8, hematocrit 42, platelet count 275,000. INR 0.92. EKG shows a sinus bradycardia with a rate of 58 and LVH. There are no acute signs of ischemia. This EKG is similar to previous from 08/20/17 with the exception of the T-wave inversions seen previously have resolved. Chest x-ray from today. Radiologist's impression: No radiographic evidence for acute cardiopulmonary abnormality on this portable chest x-ray. Brain CT from today. Radiologist's impression: No CT evidence of acute intracranial hemorrhage, territorial infarction or other acute intracranial abnormalities. Mild to moderate paranasal sinus mucosal disease. Repeat brain CT from today. Radiologist's impression: No evidence for gross acute infarct, mass effect or hemorrhage. Abdomen and pelvis CT from today. Radiologist's impression: No evidence of intraperitoneal or retroperitoneal hematoma is noted. Aorta and inferior vena cava are unremarkable. No hydronephrosis is noted. Bilateral adrenal hyperplasia is noted. Head CTA from today. Radiologist's impression: Unremarkable CTA of the head and neck. No branch occlusion or aneurysmal dilation is noted. IMPRESSION: Mr. Andres is a 62-year-old male with past medical history significant for hyperlipidemia, hypertension, diabetes mellitus, seizures, past cerebrovascular accident, coronary artery disease who presented to the emergency room with complaints of right-sided weakness and received tPA. He will be admitted as an inpatient for possible cerebrovascular accident status post tPA. ASSESSMENT/PLAN: 1. Possible cerebrovascular accident. The patient received tPA in the emergency room. He has no signs of infarct on his head CT. He was already seen in consultation by Dr. Spence with Neurology. He is going to have an MRI of his brain and an echo with bubble study. We will get a CT of his brain at 24 hours post tPA. He will have neuro checks according to the tPA protocol. He will be on bed rest until 24 hours post tPA. We will get bedside dysphagia screening. If he passes this, he will be n.p.o. and will be able to eat at 24 hours post tPA. If he fails this, we will ask speech therapy to see him. We will have OT, PT evmarie due to his right-sided weakness. I am not going to check fasting lipids as he had lipids done in the emergency room that were within normal levels. We will add a hemoglobin A1c. 2. Hypertension. Since the patient is post tPA, we are going to maintain blood pressure systolically less than 180 and diastolic less than 105. I am going to hold some of his antihypertensives to allow for permissive hypertension. I am going to hold his lisinopril and Dyazide. I am going to continue his amlodipine as he is slightly hypertensive at this time. We will monitor his blood pressure throughout the day. For now, I am going to hold his metoprolol, but may resume that later today. 3. Hyperlipidemia. The patient will be continued on his current home dose of atorvastatin. 4. Diabetes mellitus. We will add a hemoglobin A1c. He will get glucose checks q.6 hours while he is n.p.o. We will place him on a lispro sliding scale and hold his glipizide. This can be resumed at discharge. 5. Seizures. He will be continued on his home Tegretol. I have verified with [facility] that he is in fact on Tegretol. He will be placed on seizure precautions. 6. Coronary artery disease. He will be resumed on his aspirin 24 hours post tPA. We will follow his blood pressures, resume his beta-blockers, and continue his statin. The patient is currently complaining of his baseline angina pain. He has no EKG changes. He has a negative troponin. 7. Asthma. He has no signs of acute exacerbation. He is not on chronic inhaled medications. 8. Benign prostatic hypertrophy. He will be continued on his Flomax and Ditropan. 9. Chronic kidney disease, stage 3. I do not see this documented in his records, but based on his labs, he does in fact have chronic kidney disease. We will avoid nephrotoxic agents. 10. Fluids, electrolytes, and nutrition. Again, n.p.o. for 24 hours post tPA. Then, he will be on a consistent carbohydrate heart healthy diet after that. 11. Code status. Full code. 12. DVT prophylaxis. He is a moderate risk, will have SCDs only in the setting of having tPA. 13. Disposition. Inpatient. TIME SPENT: Time for this admission was approximately 60 minutes, greater than half of that was spent with the patient discussing medications, past medical history, events leading up to his arrival today, performing a physical examination. Case has been reviewed with the attending, Dr. Galvan, who agrees with the plan of care. Reviewed by RANJAN DOMINGUEZ 12/21/17 [id number]/[facility] #: [id number] [place]
[2017-12-12] MEDS: Insulin LISPRO* 1 UNITS UNIT SUBCUT SCH ×5 (00:16→20:39)
[2017-12-12] MEDS ORDERED: Ondansetron ODT TAB* 4 MG PO PRN (02:49)
[2017-12-12] MEDS ORDERED: Ondansetron ODT TAB* 4 MG ONE (02:56)
--- NOTE | 2017-12-12 08:17 | ECHO ---
Patient: JENN HEDRICK [id number] [facility] Rec#: [id number] : 1955 Date: 12/11/2017 Age: 62y Height: 165 cm / 65.0 in Weight: 99 kg / 218.2 lbs Sex: M BSA: 2.1 Room#: ICU 12 Admit Date#: 12/11/2017 Type: Inpatient Referring: Adelina Villatoro NP Reading: Prabhu Ko MD Fur Repairer: Violeta Copeland RN RDCS CC: Jose Morris MD Transthoracic Echocardiogram Indication: CVA S/P TPA BP: 170/113 HR: 67 Rhythm: NSR with PACs Findings History: HTN, DM, CAD, asthma, COPD, former smoker, migraines, bipolar disorder, TIA in past. Technical Comments: The study quality is fair. The study is technically limited due to the patient's history of COPD. The study is technically limited due to the patient's smoking history. Left Ventricle: The left ventricular chamber size is normal. Moderate concentric left ventricular hypertrophy is observed. Global left ventricular wall motion and contractility are within normal limits. There is normal left ventricular systolic function. The estimated ejection fraction is 60-65%. There is an E to A reversal in the mitral valve flow pattern suggestive of diastolic dysfunction. Left Atrium: The left atrial chamber size is normal. Right Ventricle: The right ventricular chamber size and systolic function are within normal limits. Right Atrium: The right atrial cavity size is normal. The bubble study is negative. A patent foramen ovale is not demonstrated with color Doppler and agitated contrast. Aortic Valve: The aortic valve is trileaflet. The aortic valve leaflets are mildly thickened. There is a trace of aortic regurgitation. There is no evidence of aortic stenosis. Mitral Valve: The mitral valve leaflets are mildly thickened. There is trace to mild mitral regurgitation. There is no evidence of mitral stenosis. Tricuspid Valve: The tricuspid valve leaflets are normal. There is trace tricuspid regurgitation. Unable to estimate the right ventricular systolic pressure. There is no tricuspid stenosis. Pulmonic Valve: The pulmonic valve structure is not well visualized. There is a trace pulmonic regurgitation. There is no pulmonic stenosis. Pericardium: There is no significant pericardial effusion. A pericardial fat pad is visualized. Aorta: There is no dilatation of the ascending aorta. The aortic arch is not well visualized. There is no dilation of the aortic root. Pulmonary Artery: The main pulmonary artery is not well visualized. Venous: The venous system is not well visualized. The inferior vena cava is not visualized. Contrast: Normal saline was used as contrast for the bubble study. Images 1-3. Summary: There was not any prior study for comparison. Conclusions Moderate concentric left ventricular hypertrophy is observed. Global left ventricular wall motion and contractility are within normal limits. There is normal left ventricular systolic function. The estimated ejection fraction is 60-65%. A patent foramen ovale is not demonstrated with color Doppler and agitated contrast. There is a trace of aortic regurgitation. There is no evidence of aortic stenosis. There is trace to mild mitral regurgitation. There is trace tricuspid regurgitation. There is no significant pericardial effusion. Measurements Name Value Normal Range RVDdMajor (2D) 3.3 cm (2.2 - 4.4) RAd ISD 4CH 4.7 cm (3.4 - 4.9) RA (A4C)W 3.3 cm (2.9 - 4.6) IVSd (2D) 1.4 cm (0.6 - 1) LVPWd (2D) 1.4 cm (0.6 - 1) LVIDd (2D) 4.6 cm (3.6 - 5.4) LVIDs (2D) 2.9 cm - LV FS (2D) 37 % (25 - 45) Aortic Annulus 2 cm (1.4 - 2.6) Ao root diameter (2D) 3 cm (2.1 - 3.5) Ascending Ao 3 cm (2.1 - 3.4) LA dimension (AP) 2D 3.8 cm (2.3 - 3.8) LAd ISD 4CH 4.9 cm (2.9 - 5.3) LA ISD 4CH W 3.5 cm (2.5 - 4.5) Name Value Normal Range LA ESV BP (A/L) index 17.8 ml/m2 - Name Value Normal Range MV E-wave Vmax 0.43 m/sec - MV deceleration time 211 msec - MV A-wave Vmax 0.84 m/sec - MV E:A ratio 0.5 ratio - LV septal e' Vmax 0.04 m/sec - LV lateral e' Vmax 0.05 m/sec - LV E:e' septal ratio 10.8 ratio - LV E:e' lateral ratio 8.6 ratio - Name Value Normal Range AV Vmax 1.3 m/sec - AV VTI 23.5 cm - AV peak gradient 6 mmHg - AV mean gradient 3 mmHg - LVOT Vmax 0.84 m/sec - LVOT VTI 18.5 cm - LVOT peak gradient 3 mmHg - LVOT mean gradient 2 mmHg - Name Value Normal Range PV Vmax 0.69 m/sec -
[2017-12-12] MEDS: carBAMazepine CHEW TAB(*) 100 MG PO SCH ×2 (08:51→20:39)
[2017-12-12] MEDS: Oxybutynin TAB* 5 MG PO SCH ×2 (08:51→20:39)
[2017-12-12] MEDS: Famotidine TAB* 20 MG PO SCH ×2 (08:51→20:39)
[2017-12-12] MEDS: Atorvastatin* 40 MG TAB PO SCH (08:52)
[2017-12-12] MEDS: amLODIPine TAB* 5 MG PO SCH (08:52)
--- NOTE | 2017-12-12 09:47 | PN ---
Subjective Date of Service: 12/12/17 Interval History: HOSPITALIST PROGRESS NOTE Patient seen and examined at bedside. Care reviewed and d/w Julieth Bruce RN. He feels better today. States his RUE weakness is resolved, but RLE is better, but not totally improved. Family History: Unchanged from Admission Social History: Unchanged from Admission Past Medical History: Unchanged from Admission Objective Active Medications: Acetaminophen (Tylenol Tab*) 650 mg PO Q4H PRN PRN Reason: FEVER/PAIN Last Admin: 12/12/17 03:04 Dose: 650 mg Amlodipine Besylate (Norvasc Tab*) 10 mg PO DAILY [facility] Last Admin: 12/12/17 08:52 Dose: 10 mg Atorvastatin Calcium (Lipitor*) 40 mg PO DAILY [facility] Last Admin: 12/12/17 08:52 Dose: 40 mg Carbamazepine (Tegretol Chew Tab(*)) 100 mg PO BID [facility] Last Admin: 12/12/17 08:51 Dose: 100 mg Dextrose (D50w Syringe 50 Ml*) 12.5 gm IV PUSH .FOR FS < 60 - SS PRN PRN Reason: FS < 60 Famotidine (Pepcid Tab*) 20 mg PO BID [facility]; Protocol Last Admin: 12/12/17 08:51 Dose: 20 mg Insulin Human Lispro (Humalog*) 0 - 10 units SUBCUT Q6HR [facility]; Protocol Last Admin: 12/12/17 06:04 Dose: 2 units Ondansetron HCl (Zofran Odt Tab*) 4 mg PO Q6H PRN PRN Reason: n/v Last Admin: 12/12/17 02:57 Dose: 4 mg Oxybutynin Chloride (Ditropan Tab*) 5 mg PO BID [facility] Last Admin: 12/12/17 08:51 Dose: 5 mg Tamsulosin HCl (Flomax Cap*) 0.4 mg PO QPM [facility] Last Admin: 12/11/17 18:01 Dose: 0.4 mg Vital Signs - 8 hr 12/12/17 12/12/17 12/12/17 02:00 02:30 03:00 Temperature Pulse Rate 79 80 84 Respiratory 19 15 18 Rate Blood Pressure 178/98 176/102 (mmHg) O2 Sat by Pulse 97 98 97 Oximetry 12/12/17 12/12/17 12/12/17 03:01 03:30 04:00 Temperature 98.8 F Pulse Rate 83 85 83 Respiratory 18 17 17 Rate Blood Pressure 177/103 178/88 179/94 (mmHg) O2 Sat by Pulse 97 98 97 Oximetry 12/12/17 12/12/17 12/12/17 04:30 05:00 05:23 Temperature Pulse Rate 84 82 Respiratory 15 16 Rate Blood Pressure 171/101 160/97 (mmHg) O2 Sat by Pulse 97 95 97 Oximetry 12/12/17 12/12/17 12/12/17 05:30 06:00 06:13 Temperature Pulse Rate 84 80 75 Respiratory 15 15 14 Rate Blood Pressure 175/88 158/93 (mmHg) O2 Sat by Pulse 95 97 97 Oximetry 12/12/17 12/12/17 12/12/17 06:30 07:00 07:30 Temperature Pulse Rate 80 72 76 Respiratory 16 15 14 Rate Blood Pressure 164/100 146/84 147/95 (mmHg) O2 Sat by Pulse 97 98 97 Oximetry 12/12/17 12/12/17 12/12/17 08:00 08:30 09:00 Temperature 100 F Pulse Rate 72 73 76 Respiratory 13 14 14 Rate Blood Pressure 158/90 155/88 (mmHg) O2 Sat by Pulse 97 96 96 Oximetry Oxygen Devices in Use Now: None Appearance: Pleasant gentleman lying in bed in NAD. Eyes: No Scleral Icterus Ears/Nose/Mouth/Throat: Mucous Membranes Moist Neck: Trachea Midline Respiratory: Symmetrical Chest Expansion and Respiratory Effort, Clear to Auscultation Cardiovascular: RRR - Normal S1 and S2 Abdominal: NL Sounds; No Tenderness; No Distention Neurological: Alert and Oriented x 3, - - Can move both UE with no drift, can lift RLE from bed and hold it against gravity, but does not lift it as high as his LLE Result Diagrams: 12/11/17 10:07 12/11/17 10:07 Assess/Plan/Problems-Billing Assessment: Mr Andres is a 62yo M with PMH of DM, HLD, HTN, seizures (with Hiren's paralysis) , CVA, CAD s/p NC, asthma, BPH, who presented to ED with c/o right sided weakness, found to have possible CVA. - Patient Problems (1) CVA (cerebral vascular accident) Comment: - Possible CVA - symptoms improved with tPA, but seems to have a functional component. - Initial CT brain was negative. CTA head/neck was unremarkable. - MRI brain negative for acute/subacute ischemia. - Echo showed EF 60-65%, no PFO. - F/u CT brain was negative for bleeding - will resume Aspirin. - Continue neurochecks. - Transfer to Telemetry. - Neurology f/u. - LDL is 41 - continue statin. - PT/OT. (2) HTN (hypertension) Comment: - Permissive hypertension for now. - Continue Amlodipine, resume Metoprolol. (3) HLD (hyperlipidemia) Comment: - LDL 41 - continue Atorvastatin. (4) Diabetes Comment: - A1c 7.8. - Glipizide on hold for now. - Continue FS with Lispro SS. (5) Seizure disorder Comment: - Continue Tegretol. (6) DVT prophylaxis Comment: - SCDs. (7) Full code status Status and Disposition: Inpatient.
--- NOTE | 2017-12-12 12:44 | RAD ---
Indication: Follow-up after TPA administration for stroke. Comparison: December 11, 2017 CT and MRI. Technique: Noncontrast CT vertex of skull through foramen magnum. Report: Unremarkable cerebral sulci and basal cisterns. Normal variant persistent cavum septum pellucidum and vergae. Negative for hydrocephalus. Negative for campbell matter white matter obscuration, intra or extra-axial hemorrhage, or mass effect. Unremarkable orbital contents. No suspicious lesion of the calvarium or skull base evident. Multiple probable sebaceous cysts with calcification at the frontal scalp. IMPRESSION: #. No CT abnormality of the brain. Negative for CT findings of evolving ischemic stroke or intracranial hemorrhage. #. Unchanged exam compared with December 11, 2017.
[2017-12-12] MEDS: Aspirin EC TAB* 81 MG TAB.EC PO SCH (13:28)
--- NOTE | 2017-12-12 13:51 | PN ---
Subjective Date of Service: 12/12/17 Interval History: HOSPITALIST PROGRESS NOTE Patient seen and examined at bedside. Care reviewed Objective Active Medications: Acetaminophen (Tylenol Tab*) 650 mg PO Q4H PRN PRN Reason: FEVER/PAIN Last Admin: 12/12/17 03:04 Dose: 650 mg Amlodipine Besylate (Norvasc Tab*) 10 mg PO DAILY [facility] Last Admin: 12/12/17 08:52 Dose: 10 mg Aspirin (Aspirin Ec Tab*) 81 mg PO DAILY [facility] Last Admin: 12/12/17 13:28 Dose: 81 mg Atorvastatin Calcium (Lipitor*) 40 mg PO DAILY [facility] Last Admin: 12/12/17 08:52 Dose: 40 mg Carbamazepine (Tegretol Chew Tab(*)) 100 mg PO BID [facility] Last Admin: 12/12/17 08:51 Dose: 100 mg Dextrose (D50w Syringe 50 Ml*) 12.5 gm IV PUSH .FOR FS < 60 - SS PRN PRN Reason: FS < 60 Famotidine (Pepcid Tab*) 20 mg PO BID [facility]; Protocol Last Admin: 12/12/17 08:51 Dose: 20 mg Insulin Human Lispro (Humalog*) 0 - 10 units SUBCUT ACHS [facility]; Protocol Ondansetron HCl (Zofran Odt Tab*) 4 mg PO Q6H PRN PRN Reason: n/v Last Admin: 12/12/17 02:57 Dose: 4 mg Oxybutynin Chloride (Ditropan Tab*) 5 mg PO BID [facility] Last Admin: 12/12/17 08:51 Dose: 5 mg Tamsulosin HCl (Flomax Cap*) 0.4 mg PO QPM [facility] Last Admin: 12/11/17 18:01 Dose: 0.4 mg Vital Signs - 8 hr 12/12/17 12/12/17 12/12/17 06:00 06:13 06:30 Temperature Pulse Rate 80 75 80 Respiratory 15 14 16 Rate Blood Pressure 158/93 164/100 (mmHg) O2 Sat by Pulse 97 97 97 Oximetry 12/12/17 12/12/17 12/12/17 07:00 07:30 08:00 Temperature 100 F Pulse Rate 72 76 72 Respiratory 15 14 13 Rate Blood Pressure 146/84 147/95 158/90 (mmHg) O2 Sat by Pulse 98 97 97 Oximetry 0912/12/17 12/12/17 08:30 09:00 10:00 Temperature Pulse Rate 73 76 80 Respiratory 14 14 17 Rate Blood Pressure 155/88 (mmHg) O2 Sat by Pulse 96 96 98 Oximetry 12/12/17 12/12/17 12/12/17 10:03 10:30 11:00 Temperature Pulse Rate 75 79 77 Respiratory 20 17 16 Rate Blood Pressure 172/95 171/98 182/98 (mmHg) O2 Sat by Pulse 97 97 97 Oximetry 12/12/17 12/12/17 12/12/17 11:28 11:31 12:00 Temperature 98.1 F Pulse Rate 81 86 Respiratory 16 Rate Blood Pressure 176/102 (mmHg) O2 Sat by Pulse 97 97 Oximetry 12/12/17 12/12/17 12/12/17 12:29 12:30 13:00 Temperature Pulse Rate 81 82 78 Respiratory 21 24 18 Rate Blood Pressure 151/96 152/87 (mmHg) O2 Sat by Pulse 98 96 96 Oximetry 12/12/17 13:01 Temperature Pulse Rate 84 Respiratory 17 Rate Blood Pressure 149/110 (mmHg) O2 Sat by Pulse 96 Oximetry Oxygen Devices in Use Now: None Result Diagrams: 12/11/17 10:07 12/11/17 10:07 Microbiology and Other Data: Microbiology 12/11/17 16:45 Nasal Screen MRSA (PCR) - Final Nasal Mrsa Not Detected Assess/Plan/Problems-Billing Assessment:
--- NOTE | 2017-12-12 16:27 | CONS ---
NEUROLOGY FOLLOWUP NOTE: DATE OF FOLLOWUP: 12/12/17 REFERRING PROVIDER: Dr. Downs. CHIEF COMPLAINT: Right-sided weakness. INTERVAL HISTORY: Since yesterday, Mr. Andres feels much better. His right arm strength is back to normal. He has chronic weakness of his right leg, which he attributes to a back problem. He reports episodes of right-sided weakness in the past. MEDICATIONS: Reviewed and he is on: 1. Amlodipine 10 mg p.o. q. day. 2. Atorvastatin 40 mg p.o. q. day. 3. Tegretol 100 mg p.o. b.i.d. 4. Pepcid 20 mg p.o. b.i.d. 5. Insulin sliding scale. 6. Ditropan 5 mg p.o. b.i.d. 7. Flomax 0.4 mg p.o. q.p.m. PHYSICAL EXAM: He is well-nourished and well-hydrated. He had temperature of 100 degrees earlier this morning, blood pressure 158/90, heart rate in the 70s. Neurological Exam: Facial musculature is symmetric. Speech is clear. Eye movements are normal. On motor exam, he has normal strength in the right arm. He has normal strength in the left arm. He has normal strength in the left leg. He stiffens the right leg when asked to elevate it. He has antigravity strength in the leg and some breakaway weakness distally. Plantar responses are flexor. He is alert and oriented with intact memory and fluent language. DIAGNOSTIC STUDIES/LAB DATA: Laboratory data is notable for a Tegretol level this morning of 3.6. Blood glucose this morning is 192. His MRI scan from yesterday is interpreted as normal. I reviewed the images and I agreed. Transthoracic echocardiogram was normal including bubble study. CTA of the head and neck yesterday was normal. IMPRESSION AND PLAN: Impression is that of resolved right hemiparesis. I think it was probably all functional. The repeated episodes make it more likely to be from conversion disorder as opposed to malingering. I would recommend he be discharged on the same medications as before. He has a CT of the brain pending per post tPA protocol at about 11 this morning. If he has normal level of functioning and the CT of the brain is negative, then I think he could be discharged back to his facility again without change in medications. [id number]/[facility]PS #: [id number] MTDD
[2017-12-12] MEDS: Tamsulosin CAP* 0.4 MG PO SCH (17:29)
[2017-12-12] MEDS: Metoprolol Tartrate TAB* 50 mg PO SCH (20:39)
[2017-12-13] MEDS: Insulin LISPRO* 1 UNITS UNIT SUBCUT SCH ×2 (08:58→12:26)
[2017-12-13] MEDS: Famotidine TAB* 20 MG PO SCH (08:59)
[2017-12-13] MEDS: Aspirin EC TAB* 81 MG TAB.EC PO SCH (08:59)
[2017-12-13] MEDS: amLODIPine TAB* 5 MG PO SCH (08:59)
[2017-12-13] MEDS: Oxybutynin TAB* 5 MG PO SCH (08:59)
[2017-12-13] MEDS: Metoprolol Tartrate TAB* 50 mg PO SCH (08:59)
[2017-12-13] MEDS: Atorvastatin* 40 MG TAB PO SCH (08:59)
[2017-12-13] MEDS: carBAMazepine CHEW TAB(*) 100 MG PO SCH (08:59)
[2017-12-13 11:58] VITALS: BP 159/91
--- NOTE | 2017-12-14 09:48 | DS ---
CC: Kailee Craig NP, at [place]; Dr. Spence DISCHARGE SUMMARY: DATE OF ADMISSION: 12/11/17 DATE OF DISCHARGE: 12/13/17 CONSULTING NEUROLOGIST: Dr. Spence. 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 SECONDARY DIAGNOSES: 1. Hypertension. 2. Diabetes. 3. Seizure disorder. 4. Asthma. 5. Chronic back pain after a significant height fall. 6. Coronary artery disease. MEDICATION: Medications list is unchanged from admission: 1. Amlodipine 10 mg p.o. daily. 2. Aspirin 81 mg p.o. daily. 3. Atorvastatin 40 mg p.o. daily. 4. Carbamazepine 100 mg p.o. b.i.d. 5. Glipizide 10 mg p.o. b.i.d. 6. Lisinopril 40 mg p.o. daily. 7. Metoprolol tartrate 50 mg p.o. b.i.d. 8. Oxybutynin 5 mg p.o. b.i.d. 9. Ranitidine 150 mg p.o. b.i.d. 10. Tamsulosin 0.4 mg p.o. at bedtime. 11. Triamterene/hydrochlorothiazide 37.5/25 mg 1 capsule p.o. daily. HOSPITAL COURSE: Mr. Andres is a 62-year-old male with a past medical history stated above that pres ented to the emergency room with complaints of right-sided weakness. The patient has chronic back pa in and he is able to ambulate, but he usually uses a wheelchair to move around. He had developed a " weird feeling" in his right side that progresses to loss of movement. For more details about his pre sentation, I refer you to his history and physical. In the emergency room, the patient had a CT of the brain without contrast that showed CT evidence of acute intracranial hemorrhage, territorial infarction, or acute intracranial abnormality. The patient was seen in consultation by neurology (Dr. 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 Risks and benefits were discussed and the patient received the m edication and was admitted to the intensive care unit. The patient had resolution of his right arm w eakness, but he stated that his leg was too weak, although objectively there was no weakness. His amilcar rological physical examination prior to t-PA had some functional findings including increased muscle tone in right arm and leg. He was able to stiffen the right leg and then relax it. When Dr. Spence held his right leg up and have him dorsiflex his foot, he was able to keep the right leg elevated, a nd when he held his arm up and asked him to squeeze Dr. Spence's hand, he was able to keep the arm e xtended, elevated. Further workup included a CT of the abdomen and pelvis that showed no evidence of intraperitoneal or retroperitoneal hematoma, aorta and inferior vena cava were unremarkable, no hydronephrosis, bilatera l adrenal hyperplasia was noted. CTA of the head and neck was unremarkable. MRI of the brain showed no evidence for acute or subacute ischemia, no acute abnormality of the brain. Transthoracic echocardiogram showed ejection fraction of 60% to 65% with no wall motion abnormalities and PFO was not demonstrated. 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 The patient was medically stable to be discharged back to [place] today. PHYSICAL EXAMINATION: Vital Signs: Temperature 98.6, heart rate 87, respiratory rate 16, oxygen sat uration 97% on room air, blood pressure is 159/91. General: The patient is a pleasant gentleman, lyi ng in bed, in no acute distress. CVS: Normal S1, S2. Regular rate and rhythm. Chest: Breath sound bilaterally with no added sounds. Neuro: He is alert, oriented x3. He is able to move all 4 extre mities. Face is symmetric. Speech is clear. DIET: Heart-healthy, consistent carb diet. ACTIVITY: As tolerated. DISPOSITION: To [place]. STATUS WHILE IN THE HOSPITAL: Inpatient. Please keep in mind this is a summarized version of this patient's hospital stay. If you need more in formation, please feel free to call me at [phone] or please obtain full medical records. TIME SPENT: Approximately 45 minutes was spent to complete this discharge. [id number]/[facility] #: [id number]
== END 2017-12-13 15:28 | disposition home or self-care (01) | DRG 58 ==
LOC: ED 09:56 → EEVIPCON 12:39 → ICU 12:39 → MEDTELE 12-12 15:56
PROVIDERS: ADMIT Internal Medicine; ATTEND Internal Medicine
DX: G81.91 Hemiplegia, unspecified affecting right dominant side (principal); I25.10 Atherosclerotic heart disease of native coronary artery without angina pectoris; J44.9 Chronic obstructive pulmonary disease, unspecified; M19.90 Unspecified osteoarthritis, unspecified site; G43.909 Migraine, unspecified, not intractable, without status migrainosus; G40.909 Epilepsy, unspecified, not intractable, without status epilepticus; F31.9 Bipolar disorder, unspecified; R40.2362 Coma scale, best motor response, obeys commands, at arrival to emergency department; R40.2142 Coma scale, eyes open, spontaneous, at arrival to emergency department; R40.2252 Coma scale, best verbal response, oriented, at arrival to emergency department; R29.707 NIHSS score 7; G89.29 Other chronic pain; M54.9 Dorsalgia, unspecified; E11.22 Type 2 diabetes mellitus with diabetic chronic kidney disease; I12.9 Hypertensive chronic kidney disease with stage 1 through stage 4 chronic kidney disease, or unspecified chronic kidney disease; N18.3 Chronic kidney disease, stage 3 (moderate); N40.0 Benign prostatic hyperplasia without lower urinary tract symptoms; E78.5 Hyperlipidemia, unspecified; F17.210 Nicotine dependence, cigarettes, uncomplicated; G83.84 Todd's paralysis (postepileptic); E66.3 Overweight; Z68.34 Body mass index [BMI] 34.0-34.9, adult; Z79.82 Long term (current) use of aspirin; Z99.3 Dependence on wheelchair; Z91.5 Personal history of self-harm; Z82.49 Family history of ischemic heart disease and other diseases of the circulatory system; Z86.73 Personal history of transient ischemic attack (TIA), and cerebral infarction without residual deficits; I25.2 Old myocardial infarction; Z87.891 Personal history of nicotine dependence; Z80.1 Family history of malignant neoplasm of trachea, bronchus and lung; Z79.84 Long term (current) use of oral hypoglycemic drugs
CPT/HCPCS: 36415; 70450; 70496; 70498; 70551; 71045; 74177; 80053; 80061; 80156; 81003; 81015; 83036; 83605; 84484; 85025; 85610; 85730; 86850; 86900; 86901; 87641; 93005; 93306; 99285; A9270-GY; G8978-GP-CK; G8979-GP-CI; J1200; J2765; J2997; Q9967

== ENCOUNTER 2018-12-05 16:55 | Observation (INO) | payer MEDICAID, OTHER ==
--- NOTE | 2018-12-05 17:03 | ED ---
Neurological HPI - HPI Summary HPI Summary: Patient is a 63 y/o M w/ Hx of CVA who presents to [facility] via EMS and with correctional officers for syncopal episode, AMS, headache, and right sided weakness. Syncopal episode and other Sx are reported to have onset 12/05/18 at around 1445 initially (however, after calling senior care at 1724, facility reports that Sx onset at 1215 and the patient had contacted nurse at around 1445. Therefore, patient is not a TPA candidate). MORAN is characterized as severe. Correctional officers note that the patient is not acting at his baseline. Patient in room at 1655, provider in room at 1655, NIH initiated at 1656, code campbell called at 1658, patient wheeled to [place] at 1700. Home medications and allergies are reviewed. - History of Current Complaint Stated Complaint: POSSIBLE CVA PER EMS Hx Obtained From: Patient, EMS, Other: - correctional officers Onset/Duration: Started hours ago, Still Present Timing: Constant Current Severity: Severe Neurological Deficit Location: RUE, RLE Character: Motor Weakness - right sided, Other: - headache, syncope, AMS Associated Signs and Symptoms: Positive: Headache, Weakness, AMS - Additional Pertinent History Primary Care Physician: KAREN - Allergy/Home Medications Allergies/Adverse Reactions: Allergies Allergy/AdvReac Type Severity Reaction Status Date / Time No Known Allergies Allergy Verified 12/05/18 17:06 Home Medications: Home Medications Gemfibrozil TAB* [Lopid TAB*] 600 mg PO BID 12/05/18 [History Confirmed ] Ibuprofen TAB* [Motrin TAB* 600 MG] 600 mg PO BID PRN 12/05/18 [History Confirmed 12/05/18] Insulin GLARGINE(*) [Lantus(*)] 10 units SUBCUT QAM 12/05/18 [History Confirmed 12/05/18] Lisinopril TAB* [Prinivil TAB*] 40 mg PO DAILY 12/05/18 [History Confirmed 12/05] Metoprolol Tartrate TAB* [Lopressor TAB*] 50 mg PO BID 12/05/18 [History Confirmed 12/05/18] Triamterene/HCTZ 37.5-25 MG* [Dyazide CAP*] 1 cap PO DAILY 12/05/18 [History Confirmed 12/05/18] PMH/Surg Hx/FS Hx/Imm Hx Endocrine/Hematology History: Reports: Hx Diabetes Denies: Other Endocrine/Hematological Disorders Cardiovascular History: Reports: Hx Angina, Hx Coronary Artery Disease, Hx Hypercholesterolemia, Hx Hypertension, Hx Myocardial Infarction Denies: Hx Congestive Heart Failure, Hx Deep Vein Thrombosis, Hx Pacemaker/ ICD, Hx Valvular Heart Disease, Other Cardiovascular Problems/Disorders Respiratory History: Reports: Hx Asthma, Hx Chronic Obstructive Pulmonary Disease (COPD) Denies: Other Respiratory Problems/Disorders History: Denies: Hx Renal Disease Musculoskeletal History: Reports: Hx Arthritis, Hx Back Problems Denies: Other Musculoskeletal History Sensory History: Reports: Hx Contacts or Glasses Denies: Hx Hearing Aid Opthamlomology History: Reports: Hx Contacts or Glasses Neurological History: Reports: Hx Migraine, Hx Seizures, Hx Transient Ischemic Attacks (TIA) - seven years ago Psychiatric History: Reports: Hx Bipolar Disorder, Hx Suicide Attempt - 2000, Hx Substance Abuse - 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 Denies: Hx Panic Disorder, Other Psychiatric Issues/Disorders - Surgical History Surgery Procedure, Year, and Place: Appy 1974, papillomas removal 11 surgeries, last one was in 1970 Hx Anesthesia Reactions: No Infectious Disease History: Denies: Hx Tuberculosis - Family History Known Family History: Positive: Cardiac Disease - Mother: CAD Family History: Father: Lung CA - Social History Alcohol Use: None Substance Use Type: Reports: None Hx Tobacco Use: No - quit 1.5 yrs ago Smoking Status (MU): Former Smoker Type: Cigarettes Have You Smoked in the Last Year: No Review of Systems Constitutional: Other - positive - AMS Positive: Headache, Weakness - right sided , Syncope All Other Systems Reviewed And Are Negative: Yes Physical Exam - Summary Physical Exam Summary: VITAL SIGNS: Reviewed. GENERAL: Patient is a well-developed and nourished male who is lying comfortable in the stretcher. Patient is not in any acute respiratory distress. HEAD AND FACE: No signs of trauma. No ecchymosis, hematomas or skull depressions. No sinus tenderness. EYES: PERRLA, EOMI x 2, No injected conjunctiva, no nystagmus. EARS: Hearing grossly intact. Ear canals and tympanic membranes are within normal limits. MOUTH: Oropharynx within normal limits. Dry oral mucosa. NECK: Supple, trachea is midline, no adenopathy, no JVD, no carotid bruit, no c- spine tenderness, neck with full ROM. CHEST: Symmetric, no tenderness at palpation. LUNGS: Clear to auscultation bilaterally. No wheezing or crackles. CVS: Regular rate and rhythm, S1 and S2 present, no murmurs or gallops appreciated. ABDOMEN: Soft, non-tender. No signs of distention. No rebound, no guarding, and no masses palpated. Bowel sounds are normal. EXTREMITIES: FROM in all major joints, no edema, no cyanosis or clubbing. NEURO: NIH of 3, see scale for breakdown. GCS 15. SKIN: Dry and warm. Triage Information Reviewed: Yes Vital Signs On Initial Exam: Initial Vitals Temp Pulse Resp BP Pulse Ox 98.2 F 55 15 184/84 97 12/05/18 17:02 12/05/18 17:02 12/05/18 17:02 12/05/18 17:02 12/05/18 17:02 Vital Signs Reviewed: Yes - Wickes Coma Scale Best Eye Response: 4 - Spontaneous Best Motor Response: 6 - Obeys Commands Best Verbal Response: 5 - Oriented Coma Scale Total: 15 Diagnostics - Laboratory Result Diagrams: 12/06/18 06:45 12/06/18 06:45 Lab Statement: Any lab studies that have been ordered have been reviewed, and results considered in the medical decision making process. - Radiology CXR Radiology Interpretation Completed By: ED Physician Summary of Radiographic Findings: No acute process, pending official report. - CT BRAIN CT CT Interpretation Completed By: Radiologist Summary of CT Findings: IMPRESSION: No intracranial mass or hemorrhage is noted. No significant change since. December 12, 2017. THIS REPORT WAS REVIEWED BY DR. CORODN. HEAD CTA CT Interpretation Completed By: Radiologist Summary of CT Findings: IMPRESSION: No evidence of branch occlusion or aneurysmal dilatation is identified. No. evidence of carotid artery dissection is noted. Small vertebral arteries are noted. Minimal plaque is noted at the origin of the left internal carotid artery. The right. internal carotid artery demonstrates no plaque. Intracranial circulation demonstrates no evidence of branch occlusion or aneurysmal. dilatation. THIS REPORT WAS REVIEWED BY DR. CORDON. - EKG 1806 Cardiac Rate: NL - rate of 61 BPM EKG Rhythm: Sinus Rhythm Summary of EKG Findings: EKG showed NSR with rate of 61 BPM, no ST elevations, some ST depressions noted in V4, V5, V6. ED physician has reviewed and interpreted this EKG. NIH Scale - NIH Scale Level of Consciousness: Alert/Keenly Responsive Ask Patient the Month and His/Her Age: Both Correct Ask Pt to Open/Close Eyes and Weigh Box Tender/Release Non-Paretic Hand: Both Correctly Best Gaze (Only Horizontal Eye Movement): Normal Visual Field Testing: No Visual Loss Facial Paresis-Pt to Smile & Close Eyes or Grimace Symmetry: Normal/Symmetrical Motor Function - Right Arm: Drifts LT 10 seconds Motor Function - Left Arm: No Drift-Holds 10 Seconds Motor Function - Right Leg: Drifts LT 10 seconds Motor Function - Left Leg: No Drift-Holds 10 Seconds Limb Ataxia-Must be out of Proportion to Weakness Present: Present in One Limb Sensory (Use Pinprick to Test Arms/Legs/Trunk/Face): Normal Best Language (Describe Picture, Name Items): No Aphasia Dysarthria (Read Several Words): Normal Extinction and Inattention: No Abnormality Total Score: 3 Course/Dx - Course Assessment/Plan: Patient is a 63 y/o M w/ Hx of CVA who presents to [facility] via EMS and with correctional officers for syncopal episode, AMS, headache, and right sided weakness. Syncopal episode and other Sx are reported to have onset at around 1445 initially (however, after calling senior care at 1724, facility reports that Sx onset at 1215 and the patient had contacted nurse at around 1445. Therefore, patient is not a TPA candidate). MORAN is characterized as severe. Correctional officers note that the patient is not acting at his baseline. Initially during the assessment and emergency department the patient has a right-sided weakness. Therefore efraín campbell was called. Dr. Macdonald from neurology at bedside. The head CT initially is negative for an acute pathology. Dr. Macdonald reports that the onset of symptoms is approximately 1215 therefore he is out of the TPA window. Therefore he requested to do immediately CTA to rule out and LVO. The patients blood pressure is elevated and he is bradycardic therefore the patient was given hydralazine. This is for better control of his blood pressure. Head CT IMPRESSION: No evidence of branch occlusion or aneurysmal dilatation is identified. No evidence of carotid artery dissection is noted. Small vertebral arteries are noted. Minimal plaque is noted at the origin of the left internal carotid artery. The right internal carotid artery demonstrates no plaque. Intracranial circulation demonstrates no evidence of branch occlusion or aneurysmal dilatation. Blood workup without any significant abnormality except for potassium 3.2, heart rate 100, creatinine 1.5. The patient has headache therefore the patient was given Toradol. The patient also was given potassium chloride for hypokalemia. At this point I discussed the case with Dr. Madrid from the hospital services was accepted the patient for admission. At this point the patient is hemodynamically stable alert oriented 3. - Diagnoses Provider Diagnoses: CVA (cerebral vascular accident), Uncontrolled hypertension, Headache During the Visit The Following Alert/Code Occurred: Code [place] - Patient in room at 1655, provider in room at 1655, NIH initiated at 1656, code campbell called at 1658, patient wheeled to CT at 1700. 1725 - radiologist communicated negative Brain CT results - Physician Notifications Discussed Care Of Patient With: Robinson Macdonald Time Discussed With Above Provider: 16:49 Instructed by Provider To: Other - Dr. Macdonald was informed of patient's case at 1649, Dr. Macdonald to come to ED to evaluate. Dr. Macdonald in ED at 1702 to evaluate. 1724 - Dr. Macdonald had called the senior care facility, who reported Sx onset at 1215, therefore the patient is not a TPA candidate. CTA Head to be obtained. Patient is also reported to have Hx of seizures. 1845 - Patient's case was discussed with hospitalist, Dr. Madrid, who accepts the patient for admission to her services. - Critical Care Time Critical Care Time: 75-104 min Discharge ED - Sign-Out/Discharge Documenting (check all that apply): Patient Departure - admit Patient Received Moderate/Deep Sedation with Procedure: No - Discharge Plan Condition: Stable Disposition: ADMITTED TO [facility] - Billing Disposition and Condition Condition: STABLE Disposition: Admitted to [facility] - Attestation Statements Document Initiated by Scottie: Yes Documenting Scribe: FABIAN TRINIDAD Provider For Whom Scottie is Documenting (Include Credential): LIANET CORDON MD Scribe Attestation: FABIAN Olguin, scribed for LIANET CORDON MD on 12/06/18 at 0907. Scribe Documentation Reviewed: Yes Provider Attestation: The documentation as recorded by the scribe, FABIAN TRINIDAD accurately reflects the service I personally performed and the decisions made by me, LIANET CORDON MD Status of Scribe Document: Viewed
[2018-12-05] MEDS ORDERED: NS 0.9% 1000 ML** 1,000 ML IV ONE (17:04)
[2018-12-05] MEDS ORDERED: Iodixanol* (CONTRAST) 320 MG/ML 100 ML SDV IV ONE (17:16)
[2018-12-05] MEDS ORDERED: Labetalol IV* 5 MG/ML 20 ML VIAL ONE (17:17)
[2018-12-05] MEDS ORDERED: hydrALAZINE IV* 20 MG/ML VIAL IV SLOW PU ONE (17:37)
[2018-12-05 18:28] LABS: ABS Lymphocytes 1.4 10^3/ul (1.0-4.8); ABS Monocytes 0.4 10^3/ul (0-0.8); Hematocrit 42 % (42-52); Hemoglobin 13.7 g/dL (14.0-18.0); Lymphocyte % 16.2 %; Mean Corpuscular HGB Conc 33 g/dL (31-36); Mean Corpuscular Hemoglobin 27 pg (27-31); Mean Corpuscular Volume 83 fL (80-94); Mean Platelet Volume 6.5 fL (7.4-10.4); Platelet Count 319 10^3/uL (150-450); Red Cell Distribution Width 13 % (10-15); White Blood Count 8.9 10^3/uL (3.5-10.8)
[2018-12-05 18:36] LABS: Activated Partial Thrombo Time 39.7 seconds (26.0-38.0); INR 1.09 (0.82-1.09)
[2018-12-05] MEDS ORDERED: Ketorolac INJ* 30 MG/ML 1 ML VIAL IV PUSH ONE (18:36)
[2018-12-05 18:42] LABS: Albumin 4.2 g/dL (3.2-5.2); Potassium 3.2 mmol/L (3.5-5.0); Total Bilirubin 0.4 mg/dL (0.2-1.0)
[2018-12-05 18:48] LABS: Albumin/Globulin Ratio 1.2 (1-3); EGFR African American 57.6 (>60); EGFR Non-African American 47.6 (>60); Globulin 3.6 g/dL (2-4); HDL Cholesterol 51.2 mg/dL; Total Protein 7.8 g/dL (6.4-8.9)
[2018-12-05 18:55] LABS: Troponin I 0.03 ng/mL (<0.04)
[2018-12-05] MEDS ORDERED: Potassium Chloride* LIQUID 20 MEQ/15 ML UDC PO ONE (19:15)
[2018-12-05 19:17] LABS: Carbamazepine 4.4 mcg/mL (4.0-12.0)
[2018-12-05] MEDS ORDERED: Ondansetron INJ* 2 MG/ML VIAL IV PRN (19:17)
[2018-12-05] MEDS ORDERED: Acetaminophen TAB* 325 MG PO PRN (19:17)
[2018-12-05] MEDS ORDERED: hydrALAZINE IV* 20 MG/ML VIAL IV SLOW PU PRN (19:25)
[2018-12-05] MEDS ORDERED: Dextrose 50% VIAL 50 ml IV PUSH PRN (19:37)
[2018-12-05] MEDS ORDERED: LORazepam INJ* 2 MG/ML 1 ML VIAL IV PUSH ONE (20:18)
[2018-12-05] MEDS ORDERED: Lorazepam PYXIS KEY PRN (20:18)
[2018-12-05] MEDS ORDERED: Lorazepam PYXIS KEY ONE (20:21)
[2018-12-05] MEDS ORDERED: Enoxaparin(*) 40 MG/0.4 ML SYR SUBCUT SCH (21:00)
[2018-12-05] MEDS ORDERED: carBAMazepine CHEW TAB(*) 100 MG PO SCH (21:00)
[2018-12-05] MEDS: Oxybutynin TAB* 5 MG PO SCH (21:47)
[2018-12-05] MEDS: Metoprolol Tartrate TAB* 50 mg PO SCH (21:47)
[2018-12-05] MEDS: Insulin LISPRO* 1 UNITS UNIT SUBCUT SCH (21:47)
--- NOTE | 2018-12-05 21:57 | HP ---
CC: [facility] * ADMISSION HISTORY AND PHYSICAL: DATE OF ADMISSION: 12/05/18 PRIMARY CARE PROVIDER: [facility]. MY ATTENDING PHYSICIAN WHILE IN THE HOSPITAL: Isael Reynolds MD * (DICTATED BY ROHINI THEODORE) CHIEF COMPLAINT: Weakness x8 hours. HISTORY OF PRESENT ILLNESS: Mr. Andres is a 63-year-old male with past medical history significant for diabetes mellitus type 2, severe hypertension, history of CVA, right-sided weakness, seizures and coronary artery disease who presented to the emergency department from his pertinent summary where he was in his normal state of health this morning until he states that he felt tired, laid down for a nap and then it was very difficult to arouse. Per nursing staff , the patient had loss of consciousness around 3 p.m. per records and was transported to the emergency department. The patient was not given tPA as it was unclear whether he was in the time frame. The patient's last known well was 12:30. The patient in the emergency department was found to have worsened right-sided weakness like he has had baseline right-sided weakness. The patient denies fevers, chills, chest pain, shortness of breath, abdominal pain, diarrhea. The patient does have a severe frontal headache. The patient's blood pressure was initially greater than 200 systolic. The patient was given hydralazine, his blood pressure decreased. The patient denied any recent changes to medications except for addition of Lopid, recently the patient not missed any doses of medications as he was incarcerated. The patient did not have any sick contacts, no upper respiratory symptoms, no cough, no wheezing. The patient's blood sugars have been up and down as has his weight. The patient states that he does have an aura with his seizures which he feels right in the center of his forehead. The patient in the emergency department still has significantly worsened right-sided weakness than his previous baseline. The patient evaluated by Dr. Robinson Macdonald, who recommended evaluation for CVA. We are asked to evaluate the patient for admission to the hospital. PAST MEDICAL HISTORY: Diabetes mellitus type 2, hypertension, hyperlipidemia, seizure disorder, CVA with residual right-sided weakness, coronary artery disease, history of RI, asthma, BPH, chronic kidney disease. PAST SURGICAL HISTORY: Appendectomy, cardiac catheterization, colon polypectomy , cyst removed from groin. MEDICATIONS: Per present records: 1. Lisinopril 40 mg p.o. daily. 2. Aspirin 81 mg p.o. daily. 3. Lipitor 40 mg p.o. daily. 4. Maxzide 25/37.5 1 tab p.o. daily. 5. Lopressor 50 mg p.o. b.i.d. 6. Zantac 150 mg p.o. b.i.d. 7. Tegretol 100 mg p.o. b.i.d. 8. Glucotrol 10 mg p.o. b.i.d. 9. Norvasc 10 mg p.o. daily. 10. Ditropan 5 mg p.o. b.i.d. 11. Flomax 0.4 mg p.o. q.p.m. 12. Lantus 10 units subcutaneous 2 a.m. 13. Motrin 600 mg p.o. b.i.d. as needed. 14. Lopid 60 mg p.o. b.i.d. ALLERGIES: ONIONS, GREEN PEPPERS. FAMILY HISTORY: The patient has a brother who from complication of diabetes and several siblings who are alive and well. The patient's father is alive and has lung cancer and diabetes. The patient's mother is alive, has coronary artery disease and diabetes. SOCIAL HISTORY: The patient smoked up to 2 packs a day from when he was 15 or 16, still smokes a couple of cigarettes a day. The patient denies drinking. The patient has a prior history of heroin abuse, but no illicit drug use. 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 The patient is not and has 14 children. The patient's surrogate decision maker his mother Staci Hsu. REVIEW OF SYSTEMS: A 10-point review of systems was reviewed, is negative except as above in the HPI. PHYSICAL EXAMINATION GENERAL: The patient is a 63-year-old male, who appears stated age and sitting in the bed in no acute distress. VITAL SIGNS: At the time of evaluation, temperature 98.2, respiratory rate 18, oxygen saturation 100% on room air, blood pressure 160/88. HEENT: Head: Normocephalic, atraumatic. Sclerae anicteric. No conjunctival injection. Nasal mucosa moist. Oral mucosa moist. No pharyngeal erythema, discharge, or exudate. NECK: Supple, nontender. No lymphadenopathy. No carotid bruit auscultated. No JVD. RESPIRATORY: Clear to auscultation bilaterally. No wheezes, rales or rhonchi. Good air exchange bilaterally. HEART: Regular rate and rhythm. No clicks, murmurs, gallops or rubs. Pulse is 2+ in the dorsalis pedis, posterior tibialis, and radial areas. ABDOMEN: soft, nontender, nondistended. Normoactive in all 4 quadrants. No hepatosplenomegaly. No abdominal bruits auscultated. GENITOURINARY: No suprapubic or CVA tenderness. SKIN: Clean, dry, intact. No rash. NEUROLOGIC: Diminished sensation on the right side of the face. Diminished strength on the right side and upper and lower extremities distally and proximally. Reflexes 1+ in the bilateral biceps, patellar, trace in Achilles. Babinski is downgoing bilaterally. PSYCHIATRIC: Pleasant and cooperative. DIAGNOSTIC STUDIES/LAB DATA: White blood cell count 8.9, hemoglobin 13.7, platelet count 319, INR 1.09, aPTT 39.7. Sodium 137, potassium 3.2, chloride 100, carbon dioxide 26, anion gap 11, BUN 20, creatinine 1.5, glucose 81, lactic acid 1.0, calcium 9.0. Bilirubin 0.4, AST 25, ALT 17, alkaline phosphatase 85. Troponin I 0.03, protein 7.8, albumin 4.2, globulin 3.6, triglycerides 78, cholesterol 148, LDL cholesterol 81, HDL cholesterol 52.1. Carbamazepine level pending. Studies: Brain CT read as no intracranial mass or hemorrhage, no other significant changes. Chest x-ray: This author's interpretation shows no acute cardiopulmonary disease. Compared with chest x-ray from November 2017, there are no significant changes. She has unremarkable head CTA, read as no evidence for branch occlusion or aneurysm dilatation identified, no evidence of carotid artery sections, no small vertebral arteries are noted, minimal plaquing on the origin of left internal carotid, right internal carotid artery demonstrates no plaque. ASSESSMENT AND PLAN: Impression: Mr. Andres is a 63-year-old male with past medical history significant for hypertension, hyperlipidemia, diabetes mellitus type 2, previous stroke and seizure disorder with history of Hiren's paralysis who presents to the emergency department with an unresponsive episode with worsening weakness on his right side. The patient will be admitted to the hospital for evaluation for cerebrovascular accident versus seizure. 1. Right-sided weakness, cerebrovascular accident versus seizure with Hiren's paralysis versus psychogenic weakness. The patient has worsening right-sided weakness. The patient had an unresponsive episode and had fluctuating level of consciousness while talking to Dr. Robinson Macdonald of neurology. The patient will have an MRI of the brain to rule out cerebrovascular accident persistent right- sided weakness. The patient will also have an EEG, his Tegretol level will be checked and adjusted as needed . There are no clearly defining characteristics to distinguish this being a seizure versus a cerebrovascular accident, this will be demonstrated by the MRI. The patient also had hypertensive emergency likely the cause of his headache. The patient's blood pressure will be controlled as this may have been decreasing perfusion to his brain re- exacerbating prior deficits. The patient will be started on hydralazine as well as his home medications and additional changes to his long-term medication regimen should be considered. The patient will have a transthoracic echocardiogram. The patient's LDL cholesterol slightly above the goal of 70, the patient had his Lipitor increased and his Lopid discontinued. At this time. His triglycerides are excellent. This should be followed up outpatient with his primary provider. We mckeon start the patient on aspirin and Plavix. 2. Hypertension. The patient has resistant hypertension being on 5 different medications for blood pressure including 2 diuretics. The patient will be treated with hydralazine as needed. At this point, we will keep his blood pressure between 160, 180. Escalation of outpatient medications should be considered before discharge. The patient should have an outpatient workup for secondary cause of hypertension if this has not already been completed. 3. Diabetes mellitus type 2. Hold the patient's glipizide while inpatient, check an A1c and treat with insulin sliding scale as well as his home Lantus while inpatient. 4. Hyperlipidemia. Management as above. 5. Asthma. The patient will have nebulizer as needed. 6. Coronary artery disease. Continue statin and aspirin for secondary prevention of stroke and myocardial infarction. 7. FEN: The patient will have to avoid caffeine. Fluids are not indicated at this time. 8. Disposition: The patient is admitted for observation in the hospital. 9. Code status. The patient is a full code. TIME SPENT: Approximately 60 minutes was spent on this admission, 30 of which was spent [id number] with the patient obtaining history and physical and discussing treatment plan. This plan was discussed with my attending, Dr. Isael Reynolds, and he is in agreement. ROHINI THEODORE [id number]/[facility] #: [id number] [place]
--- NOTE | 2018-12-05 23:44 | CONS ---
NEUROLOGY CONSULTATION NOTE: DATE OF CONSULT: 12/05/18 CONSULTING PROVIDER: Dr. Beltrán. REASON FOR CONSULT: Right-sided weakness and aphasia, code campbell was activated. CHIEF COMPLAINT: Headache. HISTORY OF PRESENT ILLNESS: Mr. Garrison Andres is a 63-year-old man who is incarcerated, who presented from [facility] today with symptoms of sudden-onset headache, right-sided weakness, and aphasia. The patient was last known well at 12:30 p.m. when he was requesting his daily purchases from prison, which he does on a daily basis. He called in at 2:30 for some emergent evaluation. He was transferred to our facility and arrived to [facility] at 4:50 p.m. A code campbell was activated. The last known well time was 12 :30. Symptoms onset, although it was 2:15 when the patient called for help, he became minimally response at approximately 3:15 today. The patient was taken to stat CT head after his Accu-Chek showed no evidence of hypoglycemia. The CT head did not show any evidence of acute stroke. A CTA was urgently ordered. It took approximately 30 minutes before an IV line can be placed. A CTA head and neck showed no evidence of large vessel occlusion. The patient eventually within approximately 30 minutes he was more awake and was complaining of frontal headache that was 8/10 in severity. The headache was stabbing in nature. He had some photosensitivity. He has no fevers or chills. He has had multiple headaches in the past. The patient stated that he may have had a seizure and was confused thereafter. He is on carbamazepine 100 mg twice daily. PAST MEDICAL HISTORY: Questionable seizure history, similar presentation of right- sided weakness in [address] Spence extensively evaluated him and the patient had received TPA. It turned out that the patient may have had a functional neurological weakness. Diabetes, GERD, benign prostatic hyperplasia , hypertension, urinary retention, dyslipidemia. MEDICATIONS: 1. Glipizide 10 mg p.o. b.i.d. 2. Ranitidine 150 mg p.o. b.i.d. 3. Aspirin 81 mg p.o. daily. 4. Carbamazepine 100 mg p.o. b.i.d. 5. Tamsulosin 0.4 mg p.o. q.p.m. 6. Amlodipine 10 mg p.o. daily. 7. Oxybutynin 5 mg p.o. b.i.d. 8. Atorvastatin 40 mg p.o. daily. 9. Insulin glargine 10 units subcutaneously in the morning. 10. Ibuprofen 600 mg p.o. b.i.d. 11. Gemfibrozil 600 mg p.o. b.i.d. 12. Metoprolol 50 mg p.o. b.i.d. 13. Triamterene/hydrochlorothiazide 37.5/25, 1 cap p.o. daily. 14. Lisinopril 40 mg p.o. daily. ALLERGIES: No known drug allergies. FAMILY HISTORY: The patient's mother suffers from coronary artery disease. Father has diabetes. SOCIAL HISTORY: The patient continues to smoke daily. He started smoking since his 15 years of age. He denied any alcohol or recreational drug use. REVIEW OF SYSTEMS: A 14-point review of systems was obtained and otherwise negative except for what was mentioned in the HPI. PHYSICAL EXAM: Vitals: Temperature of 97.9, pulse of 62, respiratory rate of 16, blood pressure 148/74. General: Well-nourished, well-developed man, who has hand cuffs around the ankles, in no acute distress. He is resting comfortably. Head: Atraumatic and normocephalic without any obvious abnormality. Neck is supple and symmetrical without any carotid bruits. Eyes: Conjunctivae/corneas are clear. Cardiovascular: Regular rate and rhythm with normal S1, S2. Respiratory: Clear to auscultation bilaterally. No wheezing, no rhonchi. Extremities: Normal range of motion. Skin: No skin lesions or laceration. Psych: Flat affect, depressed mood. Neurological Examination: The patient is awake, alert, oriented to person, place, time, and general circumstances. He is in no acute distress. Speech and language initially was impaired but rapidly improved, then he is fluent without any evidence of aphasia. Cranial Nerves: Pupils are equal, round and reactive to light. Extraocular muscles are intact, accommodative. Sensory to light-touch is intact on the face bilaterally. There is no facial asymmetry. Motor Exam: 5/5 in the upper and lower extremities symmetrically. Initially, he did have moderate weakness in the right arm and right leg that resolved. Normal tone and bulk throughout. Reflexes: 1+ reflexes in the upper and lower extremities. Absent at the ankles bilaterally. Sensation is intact to light touch, pinprick, and temperature bilaterally. Coordination normal finger to nose bilaterally. Gait was not assessed due to hand cuffs and emergent evaluation. DIAGNOSTIC STUDIES/LAB DATA: Labs, imaging, and other diagnostic testing: CT and CTA were reported in the HPI. Laboratory data: WBC of 8.9, hemoglobin of 13.7, hematocrit of 42, platelet count of 319. INR is 1.09, APTT is 39.7. Sodium of 137, potassium of 3.2, carbon dioxide of 26, creatinine of 1.50, lactic acid is 1. Carbamazepine level is 4.4, LDL of 81. ASSESSMENT AND RECOMMENDATIONS: Mr. Garrison Andres is a 63-year-old man with history of hypertension, dyslipidemia, possible functional right hemiparesis in 2018 that resolved, who has a questionable history of seizure-like activity for which the patient states that he was on Topamax in the past, who presented with sudden of asphasia and right-sided weakness. The patient's symptoms have resolved. The symptoms were associated with headache, but not the worse headache of his life. NIH stroke scale currently 0. The likely presentation of his right hemiparesis and aphasia is most likely a seizure disorder versus TIA. He was not a candidate for IV TPA due to being outside of therapeutic window and rapid improvement of his symptoms. He is not candidate for thrombectomy since he has no evidence of large vessel occlusion. Other differential diagnosis includes conversion disorder causing functional weakness on the right side that immediately resolved. This is less likely since his blood pressure was significantly elevated upon presentation with systolics as high as 200s. RECOMMENDATIONS: I recommended MRI of the brain without contrast to evaluate for any possible stroke, which I do not think we will see. EEG to evaluate for epileptiform abnormalities. Please increase carbamazepine to 200 mg twice daily given the low range level. Neuro checks every 4 hours. Admit to the hospitalist service. Consult PT/OT/OPERATIONS RESEARCH ENGINEER to evaluate and treat. Hold off on further testing and echo. Keep his blood pressure between systolics 150 to less than 200. Discussed fall precautions. No need for anticoagulation since the patient has no evidence of atrial fibrillation. DVT prophylaxis with SCDs. [id number]/[facility] #: [id number] [place]
[2018-12-06 07:02] LABS: ABS Lymphocytes 1.5 10^3/ul (1.0-4.8); ABS Monocytes 0.5 10^3/ul (0-0.8); ABS Neutrophils 2.8 10^3/ul (1.5-7.7); Eosinophil % 0.1 %; Hematocrit 36 % (42-52); Lymphocyte % 31.4 %; Mean Corpuscular HGB Conc 33 g/dL (31-36); Mean Corpuscular Hemoglobin 27 pg (27-31); Mean Corpuscular Volume 82 fL (80-94); Mean Platelet Volume 6.6 fL (7.4-10.4); Platelet Count 308 10^3/uL (150-450); Red Blood Count 4.41 10^6 /uL (4.18-5.48); Red Cell Distribution Width 13 % (10-15); White Blood Count 4.8 10^3/uL (3.5-10.8)
[2018-12-06 07:16] LABS: BUN/Creatinine Ratio 15.9 (8-20); Calcium 8.3 mg/dL (8.6-10.3); EGFR African American 46.1 (>60); EGFR Non-African American 38.1 (>60)
[2018-12-06] MEDS: Oxybutynin TAB* 5 MG PO SCH (08:47)
[2018-12-06] MEDS: Insulin LISPRO* 1 UNITS UNIT SUBCUT SCH ×3 (08:47→17:49)
[2018-12-06] MEDS: Metoprolol Tartrate TAB* 50 mg PO SCH (08:51)
[2018-12-06] MEDS ORDERED: Famotidine TAB* 20 MG PO SCH (09:00)
[2018-12-06] MEDS ORDERED: carBAMazepine CHEW TAB(*) 100 MG PO SCH (09:00)
[2018-12-06] MEDS ORDERED: Potassium Chlor TAB* 20 MEQ TAB.ER PO SCH (09:00)
[2018-12-06] MEDS ORDERED: Insulin GLARGINE(*) 1 UNITS UNIT SUBCUT SCH (09:00)
[2018-12-06] MEDS ORDERED: Triamterene/HCTZ 37.5-25 MG* CAP PO SCH (09:00)
[2018-12-06] MEDS ORDERED: Lisinopril TAB* 10 MG PO SCH (09:00)
[2018-12-06] MEDS ORDERED: amLODIPine TAB* 5 MG PO SCH (09:00)
[2018-12-06] MEDS ORDERED: Clopidogrel TAB* 75 MG PO SCH (09:00)
[2018-12-06] MEDS ORDERED: Aspirin EC TAB* 81 MG TAB.EC PO SCH (09:00)
--- NOTE | 2018-12-06 12:52 | PN ---
Subjective Date of Service: 12/06/18 Length of Stay: 1 Days Neurology is following for suspected seizure-like activity. Interval History: He is resting in bed. He feels much better than yesterday. He does not recall what happened yesterday but he was having trouble moving the right arm and speaking. This lasted for about 90-120 minutes. He stated that he may have had a seizure. He denied any headaches. He still has right sided weakness that is chronic. He uses a walker to ambulate. Labs, imaging, and other diagnostic tests: CTA head and neck: no evidence of LVO or aneurysmal dilatation identified. MRI brain without contrast: No intracranial bleed, mass, or acute infarction EEG: pending B12, TSH, and carbamazepine levels: pending Hg A1C: 9.4 Potassium: 3.0 Creatinine: 1.82 Review of Systems: Denied CP, SOB, or palpitations. Objective Active Medications: Acetaminophen (Tylenol Tab*) 650 mg PO Q6H PRN PRN Reason: MILD PAIN or TEMP > 100.4 Last Admin: 12/05/18 21:47 Dose: 650 mg Amlodipine Besylate (Norvasc Tab*) 10 mg PO DAILY [facility] Last Admin: 12/06/18 08:48 Dose: 10 mg Aspirin (Aspirin Ec Tab*) 81 mg PO DAILY [facility] Last Admin: 12/06/18 08:48 Dose: 81 mg Atorvastatin Calcium (Lipitor*) 80 mg PO 1700 COLE Carbamazepine (Tegretol Chew Tab(*)) 200 mg PO BID [facility] Last Admin: 12/06/18 08:51 Dose: 200 mg Clopidogrel Bisulfate (Plavix Tab*) 75 mg PO DAILY [facility] Last Admin: 12/06/18 08:49 Dose: 75 mg Dextrose (Dextrose 50% Vial 50 Ml*) 25 ml IV PUSH .FOR FS < 60 - SS PRN PRN Reason: FS < 60 Enoxaparin Sodium (Lovenox(*)) 40 mg SUBCUT Q24H [facility] Last Admin: 12/05/18 21:46 Dose: 40 mg Famotidine (Pepcid Tab*) 20 mg PO DAILY [facility]; Protocol Last Admin: 12/06/18 08:52 Dose: 20 mg Hydralazine HCl (Apresoline Iv*) 5 mg IV SLOW PU Q6H PRN PRN Reason: SBP>170 Insulin Glargine (Lantus(*)) 10 units SUBCUT QAM [facility] Last Admin: 12/06/18 08:46 Dose: 10 units Insulin Human Lispro (Humalog*) 0 units SUBCUT ACHS [facility]; Protocol Last Admin: 12/06/18 12:36 Dose: Not Given Lisinopril (Prinivil Tab*) 40 mg PO DAILY [facility] Last Admin: 12/06/18 08:49 Dose: 40 mg Metoprolol Tartrate (Lopressor Tab*) 50 mg PO BID [facility] Last Admin: 12/06/18 08:51 Dose: 50 mg Miscellaneous (Ativan Pyxis Beckham) 1 ea N/A .ATIVAN IV BECKHAM PRN PRN Reason: PYXIS BECKHAM Ondansetron HCl (Zofran Inj*) 4 mg IV Q6H PRN PRN Reason: NAUSEA Oxybutynin Chloride (Ditropan Tab*) 5 mg PO BID [facility] Last Admin: 12/06/18 08:47 Dose: 5 mg Potassium Chloride (Klor Con Er Tab*) 40 meq PO BID [facility] Stop: 12/06/18 21:00 Last Admin: 12/06/18 08:48 Dose: 40 meq Tamsulosin HCl (Flomax Cap*) 0.4 mg PO QPM [facility] Triamterene/HCTZ (Dyazide Cap*) 1 cap PO DAILY [facility] Last Admin: 12/06/18 08:50 Dose: 1 cap Vital Signs 12/05/18 12/05/18 12/05/18 17:02 17:47 17:48 Temperature 98.2 F Pulse Rate 55 55 54 Respiratory 15 17 15 Rate Blood Pressure 184/84 181/94 (mmHg) O2 Sat by Pulse 97 100 100 Oximetry 12/05/18 12/05/18 12/05/18 17:53 17:54 18:00 Temperature Pulse Rate 56 56 Respiratory 19 15 Rate Blood Pressure 176/89 (mmHg) O2 Sat by Pulse 99 99 99 Oximetry 12/05/18 12/05/18 12/05/18 18:21 18:47 19:00 Temperature Pulse Rate 67 Respiratory 18 14 3 Rate Blood Pressure 160/88 137/68 (mmHg) O2 Sat by Pulse 100 Oximetry 12/05/18 12/05/18 12/05/18 19:17 19:47 19:48 Temperature 97.9 F Pulse Rate 59 Respiratory 14 11 16 Rate Blood Pressure 148/74 138/68 148/74 (mmHg) O2 Sat by Pulse 97 Oximetry 12/05/18 12/05/18 12/05/18 20:00 20:24 21:21 Temperature 97.5 F Pulse Rate 62 Respiratory 15 16 20 Rate Blood Pressure 141/70 (mmHg) O2 Sat by Pulse 99 Oximetry 12/05/18 12/05/18 12/06/18 22:04 23:15 02:00 Temperature 97.5 F 98 F 97.8 F Pulse Rate 62 64 63 Respiratory 20 16 16 Rate Blood Pressure 141/70 136/67 119/53 (mmHg) O2 Sat by Pulse 99 100 100 Oximetry 12/06/18 12/06/18 12/06/18 07:15 08:42 11:15 Temperature 97.6 F 98.7 F Pulse Rate 68 64 58 Respiratory 20 20 Rate Blood Pressure 136/69 150/72 133/72 (mmHg) O2 Sat by Pulse 97 100 Oximetry Intake and Output Last 24 Hours 12/04/18 12/05/18 12/06/18 12/07/18 06:59 06:59 06:59 06:59 Intake Total 0 360 Balance 0 360 Weight 197 lb 12.8 oz Intake: Oral 0 360 Other: # Bowel Movements 0 Oxygen Devices in Use Now: None Neurology Exam: General: Well nourished, well developed, and in no acute distress HEENT: Normocephelic/atraumatic, sclera anicteric, mucous membranes moist Neck: Supple Chest: Clear to auscultation bilaterally Cardiovascular: Regular rate and rhythm without murmurs, rubs, gallops Extremities: No clubbing, cyanosis, or edema Neurological Findings: Awake, alert, and oriented to person, place, and time. Speech: fluent without dysarthria, repetition intact Cranial Nerve: PERRL, EOM intact, VFF, no nystagmus, face symmetric bilaterally , facial sensation intact, hearing intact to finger rub bilaterally, palate elevates symmetrically, tongue midline, SCM and Trapezius s/s. Motor: s/s throughout, proximal and distal extremities x4 tone/bulk normal Sensation: intact to LT/PP bilaterally upper and lower extremities Deep Tendon Reflex: 2 + on the right biceps, triceps, and knees, 1+ on the left. Absent ankle reflexes. Finger to nose, rapid alternating movements intact without tremor, no dysdiadochokinesia Gait: wide based, required a walker. Result Diagrams: 12/06/18 06:45 12/06/18 06:45 Assessment/Plan Mr. Garrison Andres is a 63-year-old man with history of hypertension, DMII ( uncontrolled), CKD, and reported seizure disorder who presented with sudden onset aphasia and right hemiparesis. The patient reports having right hemiparesis chronically from a stroke he had in the past. I don't see a prior or new stroke on MRI. His exam was thought to be functional by other providers in the past. 1. Sudden onset aphasia and right hemiparesis- improved. I suspect this was most likely a seizure with Hiren's paralysis and post-ictal state. MRI brain showed no evidence for stroke. He has asymmetric reflexes on examination; thus , raising the concern for spine pathology that may explain his chronic right hemiparesis. I don't think he had a TIA but this cannot be entirely excluded in a patient who has significant risk factors for cerebrovascular disease. Recommendations: - Aspirin 81 mg and Plavix 75 mg daily for 21 days, thereafter, discontinue aspirin - High intensity statin therapy with atorvastatin 80 mg nightly - Educated the patient on the importance of diabetic control - Discussed fall precautions - Follow-up with neurology as an outpatient. We can arrange a follow-up - Once he is out of snf, I informed him to consider evaluation for any degeneration disc disease in the neck that can be contributing to his chronic right sided weakness. If that's negative, then he most likely has functional weakness on the right (but this would not explain his asymmetric reflexes). 2. History of seizures- pending carbamazepine level. If above 6, then continue carbamazepine 200 mg twice daily. Pending an EEG 3. Hypokalemia and hyperglycemia - defer to the primary team. I will sign off, but I am available for any questions. Patient can be discharged back to snf today.
[2018-12-06 13:45] LABS: Carbamazepine 2.8 mcg/mL (4.0-12.0)
[2018-12-06 14:02] LABS: TSH (Thyroid Stimulating Horm) 0.93 mcIU/mL (0.34-5.60)
[2018-12-06 16:12] VITALS: BP 149/75
[2018-12-06 16:40] LABS: Calcium 8.2 mg/dL (8.6-10.3); EGFR African American 53.1 (>60); EGFR Non-African American 43.8 (>60); Potassium 3.4 mmol/L (3.5-5.0)
[2018-12-06] MEDS ORDERED: Tamsulosin CAP* 0.4 MG PO SCH (18:00)
[2018-12-06] MEDS ORDERED: Atorvastatin* 80 MG TAB PO SCH (19:17)
--- NOTE | 2018-12-06 21:08 | PN ---
Subjective Date of Service: 12/06/18 Interval History: Patient does complain of some weakness on right side States that he had some residual weakness but he feels that it has increased slightly from before otherwise feels okay Objective Vital Signs - 8 hr 12/06/18 15:15 Temperature 98.6 F Pulse Rate 61 Respiratory 20 Rate Blood Pressure 149/75 (mmHg) O2 Sat by Pulse 98 Oximetry Oxygen Devices in Use Now: None Exam: patient is sitting on a bed with no acute distress. HEENT: Normocephalic and atraumatic; sclerae anicteric LUngs: CLear with no added sound Heart: S1/S2 heardd with no murmur, rubs or gallop Abdomen: soft, nondistended and nontender. normal BS heard Extremities: Normal Neuro: alert, conscious and orineted CN inact. motor strength on right upper extremity is 4/5 with mild decrease in sensation Result Diagrams: 12/06/18 06:45 12/06/18 15:43 Assess/Plan/Problems-Billing Assessment: 63 y/o M with h/o hypertension, DM(uncontrolled), CKD, ?stroke(with residual right hemiparesis) and reported seizure disorder who presented with sudden onset aphasia and right hemiparesis. Norml CT and MRI. 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 States that he might have had seizure; his classmates says him that sometimes he just stares and doesnt responds No tonic clonic movement, incontinence or tounge biting Imaging normal and eeg normal was taking carbamezepine; dose increased to 200 mg twice daily started aspirin and plavix for 21 days and then plavix alone; in suspicion of TIA as he has multiple risk factors (2) Diabetes Status: Acute Code(s): E11.9 - TYPE 2 DIABETES MELLITUS WITHOUT COMPLICATIONS SNOMED Code(s): 09366739 Comment: - uncontrolled; Hba1c is 9.4 - Glipizide on hold for now. - continue insulin lispro and ss (3) HTN (hypertension) Status: Acute Code(s): I10 - ESSENTIAL (PRIMARY) HYPERTENSION SNOMED Code(s) : 12387138 Comment: - was high on presentation; normal now - on amlodipine, lisinopril and metoprolol. (4) HLD (hyperlipidemia) Status: Acute Code(s): E78.5 - HYPERLIPIDEMIA, UNSPECIFIED SNOMED Code(s): 41926462 Comment: atorvastatin dose increased to 80 mg (5) DVT prophylaxis Status: Acute Code(s): ROX1563 - SNOMED Code(s): 081055647 Comment: - on lovenox. (6) Full code status Status: Acute Code(s): Z78.9 - OTHER SPECIFIED HEALTH STATUS SNOMED Code(s) : 175618739 Status and Disposition: inpatient can be d/c Attending: Ioana Guthrie Attestation Documenting Resident: John Zambrano Supervising Physician: Ioana Guthrie Attestation: This service has been performed in part by a resident under the direction of a teaching physician.I, Ioana Guthrie, performed the service, or was physically present during the critical, or lee portions of the service, furnished by the resident. I participated in the management of the patient.
--- NOTE | 2018-12-06 21:33 | EEG ---
ELECTROENCEPHALOGRAPHY: DATE OF STUDY: 12/06/18 DATE READ: 12/06/18 ORDERED BY: ROHINI Elias CLINICAL PROBLEM: Mr. Garrison Andres is a 63-year-old man who presents with sudden onset of aphasia and right-sided weakness that was suspected to be related to stroke. This EEG was obtained to evaluate for epileptiform abnormalities or electrographic seizures. MEDICATIONS: 1. Humalog. 2. Norvasc. 3. Aspirin. 4. Tegretol. 5. Plavix. 6. Pepcid. 7. Lantus. 8. Lopressor. 9. Ditropan 10. Dyazide. 11. Flomax. 12. Lipitor. 13. Lovenox. 14. Tylenol. 15. Apresoline. 16. Ativan. REPORT: Clinical state waking. The waking background showed appropriate organization with clearly defined anterior-posterior voltage and frequency gradients. There was a well-defined posterior dominant rhythm of 10 Hz, which was symmetrical and showed normal reactivity. Anteriorly, there was an expected pattern of lower voltage, irregular, mixed faster frequency. Hyperventilation and photic stimulation were not performed. Single electrode EKG showed normal sinus rhythm. CLINICAL IMPRESSION: This is a normal awake EEG with no episode of epileptiform discharges or electrographic seizures. Normal interictal EEG does not support or exclude the diagnosis of epilepsy. Clinical correlation is recommended. [id number]/[facility] #: [id number] MTDD
--- NOTE | 2018-12-07 00:54 | DS ---
CC: Dr. Jose Morris; Dr. Macdonald * DISCHARGE SUMMARY: DATE OF ADMISSION: 12/05/18 DATE OF DISCHARGE: 12/06/18 PRIMARY CARE PHYSICIAN: Dr. Jose Morris at [facility]. PRIMARY DIAGNOSES: 1. 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 2. Seizure disorder. SECONDARY DIAGNOSES: 1. Diabetes. 2. Hypertension. 3. Cerebrovascular accident with residual right-sided weakness. 4. Coronary artery disease with a history of myocardial infarction. 5. Asthma. 6. Chronic kidney disease. 7. Benign prostatic hypertrophy. CONSULTS: Dr. Macdonald of Neurology. DISCHARGE MEDICATIONS: 1. Carbamazepine 200 mg twice a day. 2. Aspirin 81 mg daily. 3. Atorvastatin 80 mg daily. 4. Clopidogrel 75 mg daily. 5. Lisinopril 40 mg daily. 6. Hydrochlorothiazide/triamterene 25/37.5 daily. 7. Metoprolol tartrate 50 mg twice a day. 8. Tamsulosin 0.4 mg a day. 9. Amlodipine 10 mg daily. 10. Glipizide 10 mg twice a day. 11. Insulin glargine 10 units in the morning. 12. Gemfibrozil 600 mg twice a day. 13. Oxybutynin 5 mg twice a day. 14. Ranitidine 150 mg twice a day. HISTORY OF PRESENT ILLNESS: Mr. Andres is a 63-year-old man who was incarcerated who presented from [facility] today with sudden of headache, right- sided weakness and aphasia. The patient was last known well at 2:30 p.m. on day of discharge when he was requesting his daily purchases from commissary which he does on a daily basis and then he called at 2:30 p.m. for an emergent evaluation. He was transferred to our facility by 4:50 on day of presentation. A code muñoz was activated. Per report, the patient was minimally responsive after his call for help at 2:30. He was seen at 3:15 and transferred immediately to [facility]. HOSPITAL COURSE: In the emergency room, after efraín muñoz was called, urgent head CT was obtained which did not show evidence of acute stroke. He had no evidence of hypoglycemia. CTA of head and neck showed no evidence of large vessel occlusion. Within 30 minutes of presentation, he was more awake and was complaining of a frontal headache that was 8/10 in severity. He also had photosensitivity without fevers or chills. The patient thinks that he had a seizure as he as confused after the event and he does take carbamazepine 100 mg twice a day for this. He was admitted to the medical service for ongoing neuro checks with electroencephalogram ordered by neurology consulting service. It was felt that his presentation was due to seizure disorder complicated by Hiren' s paralysis and a postictal state. His imaging was thus far negative. While official electroencephalogram read is pending, per discussion with the neurologist that read the report, the electroencephalogram was normal and he felt comfortable sending the patient back home on an increased dose of carbamazepine. His LDL was checked and noted to be 81, but optimize him for stroke prevention, his atorvastatin was increased to 80 mg daily. Plan of care was discussed with the patient. He was amenable to this plan. The patient was also initiated on clopidogrel to continue indefinitely with aspirin to be discontinued after 21 days. This was initiated as the patient does have a history of cerebrovascular event and this change in treatment is worth the risk as the benefit is deemed to be high, so it could possibly prevent another cerebrovascular event if this was indeed a TIA causing his symptom presentation. PHYSICAL EXAMINATION: Afebrile, heart rate 60, blood pressure 133/72, respiratory rate 20, oxygen saturation 100% on room air. In general, he is an well appearing man in no acute distress. He appears his stated age. Neck: Supple. No JVD. Able to touch chin to chest. HEENT with moist mucous membranes. OP clear. Heart: Regular rate and rhythm. No murmurs, gallops, or rubs. Lungs: Clear to auscultation bilaterally. Abdomen: Soft, nontender, and nondistended. Skin: Clean, dry and intact, no rash. Neuro: With CN II through XII intact. Speech fluent without dysarthria. A and O x3. Motor 5/5 throughout. Sensation intact bilaterally. Gait wide based requiring a walker. PERTINENT STUDIES AND LABS: Hemoglobin 12.0 at baseline with MCV 82. Potassium 3.2, decreased to 3.0 on day of discharge, increased to 3.4 after oral repletion. Creatinine 1.6, which was at baseline. A1c 9.4. Carbamazepine level 2.8. B12 229. TSH 0.93. Brain CT without intracranial mass or hemorrhage noted. No significant changes since 12/12/17. Brain MRI without contrast without intracranial bleed, suspicious mass or mass effect, ventricles appear nondilated, no abnormalities, restricted diffusion to suggest acute ischemic event. Head CTA and neck without evidence of branch occlusion or aneurysmal dilatation identified. No evidence of carotid artery dissection is noted. Small vertebral arteries are noted. Minimal plaque is noted at the origin of the left ICA. The right ICA demonstrates no plaque. DISCHARGE PLAN: The patient is to follow closely with his primary care physician at [facility] as well as Dr. Frias of neurology services in 1 to 2 weeks after discharge. His home medications are to be continued as above with a notable to the home medications that he came in on. The patient is indicated on aspirin 81 and Plavix 75 for the next 21 days and thereafter should discontinue aspirin. His atorvastatin was doubled to 80 mg nightly and his carbamazepine was doubled from 100 twice a day to 200 twice a day. His primary care physician should continue to monitor his potassium levels. He will likely need to start a daily potassium chloride oral supplement, if his levels continued to be low. This was thought likely to be from his home hydrochlorothiazide. He will need ongoing control of his glucose as his primary care physician can consider other agents such as metformin, liraglutide , or sitagliptin. The patient should eat a healthy diet, low in processed food and low in carbohydrates, and resume activities as tolerated. DISPOSITION: [facility]. CONDITION: Good. TIME SPENT: Approximately 60 minutes was spent on discharge of this patient, more than half of which was spent with care and coordination at bedside for interview and exam. [id number]/[facility] #: [id number] [place]
== END 2018-12-06 20:14 ==
LOC: ED 16:55 → MEDTELE 19:17 → EEVIPCON 19:17
PROVIDERS: ADMIT Internal Medicine; ATTEND Internal Medicine
DX: G40.909 Epilepsy, unspecified, not intractable, without status epilepticus (principal); E11.22 Type 2 diabetes mellitus with diabetic chronic kidney disease; I12.9 Hypertensive chronic kidney disease with stage 1 through stage 4 chronic kidney disease, or unspecified chronic kidney disease; N18.9 Chronic kidney disease, unspecified; I69.351 Hemiplegia and hemiparesis following cerebral infarction affecting right dominant side; I25.10 Atherosclerotic heart disease of native coronary artery without angina pectoris; I25.2 Old myocardial infarction; J45.909 Unspecified asthma, uncomplicated; N40.0 Benign prostatic hyperplasia without lower urinary tract symptoms; Z79.82 Long term (current) use of aspirin; Z79.899 Other long term (current) drug therapy; Z79.4 Long term (current) use of insulin
CPT/HCPCS: 36415; 70450; 70496; 70498; 70551; 71045; 80048; 80053; 80061; 80156; 82607; 83036; 83605; 83735; 84443; 84484; 85025; 85610; 85730; 93005; 95819; 96374; 96375; 99285; A9270-GY; G0378; G8978-GP-CK; G8979-GP-CI; J0360; J1650; J1885; J2060; Q9967

== ENCOUNTER 2020-03-04 13:01 | Inpatient (IN) ==
[2020-03-04 16:31] LABS: ABS Lymphocytes 2.2 10^3/ul (1.0-4.8); ABS Monocytes 0.4 10^3/ul (0-0.8); ABS Neutrophils 3.4 10^3/ul (1.5-7.7); Eosinophil % 0.1 %; Hematocrit 42 % (42-52); Hemoglobin 14.2 g/dL (14.0-18.0); Lymphocyte % 36.6 %; Mean Corpuscular HGB Conc 34 g/dL (31-36); Mean Corpuscular Hemoglobin 31 pg (27-31); Mean Corpuscular Volume 90 fL (80-94); Mean Platelet Volume 7.3 fL (7.4-10.4); Nucleated Red Blood Cells % 0.1; Platelet Count 267 10^3/uL (150-450); Red Blood Count 4.67 10^6 /uL (4.18-5.48); Red Cell Distribution Width 14 % (10-15); White Blood Count 6.1 10^3/uL (3.5-10.8)
[2020-03-04] MEDS ORDERED: NS 0.9% 1000 ml BAG 1,000 ML IV ONE ×2 (16:45→17:34)
[2020-03-04 16:48] LABS: ALT 14 U/L (7-52); AST 15 U/L (13-39); Albumin/Globulin Ratio 1.1 (1-3); Alkaline Phosphatase 93 U/L (34-104); Anion Gap 7 mmol/L (2-11); BUN/Creatinine Ratio 14.1 (8-20); Blood Urea Nitrogen 22 mg/dL (6-24); CO2 Carbon Dioxide 29 mmol/L (22-32); Chloride 100 mmol/L (101-111); EGFR African American 54.8 (>60); EGFR Non-African American 45.3 (>60); Globulin 3.6 g/dL (2-4); Glucose 79 mg/dL (70-100); Lipase 333 U/L (11.0-82.0); Potassium 3.8 mmol/L (3.5-5.0); Sodium 136 mmol/L (135-145); Total Protein 7.6 g/dL (6.4-8.9)
[2020-03-04 16:50] LABS: Troponin I 0.01 ng/mL (<0.03)
[2020-03-04 17:14] LABS: Amylase 336 U/L (29-103)
[2020-03-04] MEDS ORDERED: Morphine 4 MG/ML VIAL (1 ml) IV ONE (18:57)
[2020-03-04 19:23] LABS: Urine Appearance Cloudy; Urine Bilirubin Negative (Negative); Urine Blood 1+ (Negative); Urine Color Yellow; Urine Glucose Negative (Negative); Urine Ketones Negative (Negative); Urine Nitrite Negative (Negative); Urine Protein Negative (Negative); Urine Specific Gravity 1.012 (1.010-1.030); Urine Urobilinogen Negative (Negative)
[2020-03-04] MEDS ORDERED: Amoxicillin/Clavul 500/125 TAB (Augmentin 500 mg tab) PO ONE (19:32)
[2020-03-04 19:35] LABS: Urine Bacteria Absent (Absent); Urine Red Blood Cell 1+(3-5/hpf) (Absent); Urine Squamous Epithelial Cell Present (Absent); Urine White Blood Cell 1+(6-10/hpf) (Absent)
[2020-03-04] MEDS ORDERED: Dextrose 50% Syringe 50 ml 25 GM/50 ML SYRINGE IV PUSH PRN (20:24)
[2020-03-04] MEDS ORDERED: NS 0.9% 1000 ml BAG 1,000 ML IV SCH (20:30)
[2020-03-04] MEDS ORDERED: Albuterol 2.5mg/3 ml (0.083%) NEB.SOLN INH PRN (20:47)
[2020-03-04 21:08] LABS: Alcohol, S < 10 mg/dL (<10)
[2020-03-04 23:33] LABS: INR 0.96 (0.82-1.09)
[2020-03-04] MEDS: Senna TAB 8.6 mg TAB PO PRN (23:36)
[2020-03-04] MEDS: Ondansetron 4 mg VIAL 2 MG/ML 2 ml VIAL IV PRN (23:41)
[2020-03-04] MEDS: cefTRIAXone 1 gm/50 mL NS BAG 1 GM/50 ML BAG IVPB SCH (23:45)
[2020-03-04] MEDS: Heparin 5000 UNITS/ML 1 mL VIAL SUBCUT SCH (23:54)
[2020-03-05 06:05] LABS: INR 1.05 (0.82-1.09)
[2020-03-05 06:12] LABS: ABS Lymphocytes 1.5 10^3/ul (1.0-4.8); ABS Monocytes 0.4 10^3/ul (0-0.8); Eosinophil % 0.1 %; Hematocrit 36 % (42-52); Lymphocyte % 29.6 %; Mean Corpuscular HGB Conc 34 g/dL (31-36); Mean Corpuscular Hemoglobin 31 pg (27-31); Mean Corpuscular Volume 91 fL (80-94); Mean Platelet Volume 7.3 fL (7.4-10.4); Nucleated Red Blood Cells % 0.1; Platelet Count 236 10^3/uL (150-450); Red Blood Count 3.94 10^6 /uL (4.18-5.48); Red Cell Distribution Width 13 % (10-15); White Blood Count 4.9 10^3/uL (3.5-10.8)
[2020-03-05] MEDS: Heparin 5000 UNITS/ML 1 mL VIAL SUBCUT SCH ×3 (06:18→22:11)
[2020-03-05 06:23] LABS: BUN/Creatinine Ratio 12.7 (8-20); Calcium 7.9 mg/dL (8.6-10.3); EGFR Non-African American 42.2 (>60); HDL Cholesterol 33.3 mg/dL; Potassium 4.1 mmol/L (3.5-5.0)
[2020-03-05] MEDS: Morphine 2 MG/ML SYRINGE IV PRN ×3 (08:02→23:20)
[2020-03-05] MEDS: Ondansetron 4 mg VIAL 2 MG/ML 2 ml VIAL IV PRN ×2 (08:02→14:34)
[2020-03-05] MEDS: Insulin GLARGINE 100 un/ml 10 ml VIAL SUBCUT SCH (08:06)
[2020-03-05] MEDS ORDERED: Iodixanol (CONTRAST) 320 MG/ML 100 ML SDV IV ONE (13:25)
[2020-03-05] MEDS: cefTRIAXone 1 gm/50 mL NS BAG 1 GM/50 ML BAG IVPB SCH (22:11)
[2020-03-05] MEDS: Senna TAB 8.6 mg TAB PO PRN (22:24)
[2020-03-06] MEDS: Heparin 5000 UNITS/ML 1 mL VIAL SUBCUT SCH ×3 (05:42→21:56)
[2020-03-06] MEDS ORDERED: Benzocaine/Menthol LOZ PO PRN (05:55)
[2020-03-06] MEDS: Morphine 2 MG/ML SYRINGE IV PRN (05:57)
[2020-03-06 07:41] LABS: BUN/Creatinine Ratio 9.8 (8-20); Calcium 8.3 mg/dL (8.6-10.3); EGFR African American 52.1 (>60); EGFR Non-African American 43.1 (>60); Potassium 4.5 mmol/L (3.5-5.0)
[2020-03-06 07:44] LABS: Hematocrit 38 % (42-52); Hemoglobin 12.6 g/dL (14.0-18.0); Mean Corpuscular HGB Conc 33 g/dL (31-36); Mean Corpuscular Hemoglobin 31 pg (27-31); Mean Corpuscular Volume 92 fL (80-94); Mean Platelet Volume 7.7 fL (7.4-10.4); Platelet Count 228 10^3/uL (150-450); Red Blood Count 4.12 10^6 /uL (4.18-5.48); Red Cell Distribution Width 14 % (10-15); White Blood Count 5.1 10^3/uL (3.5-10.8)
[2020-03-06] MEDS: Insulin GLARGINE 100 un/ml 10 ml VIAL SUBCUT SCH (08:32)
[2020-03-06] MEDS ORDERED: Simethicone SUSP ORALSYR 66.66 MG/ML PO PRN (09:16)
[2020-03-06] MEDS: Senna TAB 8.6 mg TAB PO SCH ×2 (09:34→21:55)
[2020-03-06] MEDS ORDERED: Polyethylene Glycol 3350 17 GM PACKET PO SCH (10:00)
[2020-03-06] MEDS: Polyethylene Glycol 3350 17 GM PACKET PO SCH ×2 (10:30→21:54)
[2020-03-06] MEDS: Morphine 2 MG/ML SYRINGE IV SCH ×2 (14:12→21:57)
[2020-03-07] MEDS: Heparin 5000 UNITS/ML 1 mL VIAL SUBCUT SCH ×2 (06:26→13:32)
[2020-03-07] MEDS: Morphine 2 MG/ML SYRINGE IV PRN ×2 (06:31→13:32)
[2020-03-07 07:04] LABS: Hematocrit 36 % (42-52); Mean Corpuscular HGB Conc 33 g/dL (31-36); Mean Corpuscular Hemoglobin 30 pg (27-31); Mean Corpuscular Volume 92 fL (80-94); Mean Platelet Volume 7.5 fL (7.4-10.4); Platelet Count 212 10^3/uL (150-450); Red Blood Count 3.98 10^6 /uL (4.18-5.48); Red Cell Distribution Width 13 % (10-15); White Blood Count 4.3 10^3/uL (3.5-10.8)
[2020-03-07 07:16] LABS: BUN/Creatinine Ratio 11.9 (8-20); Calcium 8.1 mg/dL (8.6-10.3); EGFR African American 60.6 (>60); EGFR Non-African American 50.1 (>60); Potassium 4.1 mmol/L (3.5-5.0)
[2020-03-07] MEDS: Insulin GLARGINE 100 un/ml 10 ml VIAL SUBCUT SCH (08:19)
[2020-03-07] MEDS: Polyethylene Glycol 3350 17 GM PACKET PO SCH (08:19)
[2020-03-07] MEDS: Senna TAB 8.6 mg TAB PO SCH (08:20)
[2020-03-07 11:40] VITALS: BP 169/79
== END 2020-03-07 14:25 | DRG 282 ==
LOC: MEDTELE 13:01 → ED 13:01 → MEDTELE 22:29
PROVIDERS: ADMIT Internal Medicine; ATTEND Internal Medicine

== ENCOUNTER 2020-06-21 15:40 | Inpatient (IN) ==
[2020-06-21] MEDS ORDERED: NS 0.9% 1000 ml BAG 1,000 ML IV ONE (15:47)
[2020-06-21] MEDS ORDERED: Lorazepam PYXIS KEY PRN (16:12)
[2020-06-21] MEDS ORDERED: LORazepam 2 mg VIAL 1 ml IV ONE (16:12)
[2020-06-21 16:16] LABS: ABS Lymphocytes 0.9 10^3/ul (1.0-4.8); ABS Monocytes 0.4 10^3/ul (0-0.8); ABS Neutrophils 5.6 10^3/ul (1.5-7.7); Eosinophil % 0.1 %; Hematocrit 40 % (42-52); Hemoglobin 13.6 g/dL (14.0-18.0); Lymphocyte % 12.4 %; Mean Corpuscular HGB Conc 34 g/dL (31-36); Mean Corpuscular Hemoglobin 31 pg (27-31); Mean Corpuscular Volume 92 fL (80-94); Mean Platelet Volume 7.6 fL (7.4-10.4); Platelet Count 251 10^3/uL (150-450); Red Blood Count 4.37 10^6 /uL (4.18-5.48); Red Cell Distribution Width 14 % (10-15); White Blood Count 6.9 10^3/uL (3.5-10.8)
[2020-06-21 16:26] LABS: Activated Partial Thrombo Time 30.7 seconds (26.0-38.0); INR 1.03 (0.82-1.09)
[2020-06-21 16:59] LABS: Albumin 3.9 g/dL (3.2-5.2); Albumin/Globulin Ratio 1.2 (1-3); Calcium 8.5 mg/dL (8.6-10.3); EGFR African American 80.4 (>60); EGFR Non-African American 66.4 (>60); Globulin 3.3 g/dL (2-4); HDL Cholesterol 38.5 mg/dL; Total Bilirubin 0.3 mg/dL (0.2-1.0); Total Protein 7.2 g/dL (6.4-8.9)
[2020-06-21] MEDS ORDERED: Iodixanol (CONTRAST) 320 MG/ML 100 ML SDV IV ONE (17:05)
[2020-06-21 17:54] LABS: Urine Appearance Clear; Urine Bilirubin Negative (Negative); Urine Blood Negative (Negative); Urine Color Yellow; Urine Glucose 1+(50 mg/dL) (Negative); Urine Ketones Negative (Negative); Urine Nitrite Negative (Negative); Urine Protein 3+(>=500 mg/dL) (Negative); Urine Specific Gravity 1.016 (1.002-1.030); Urine Urobilinogen Negative (Negative)
[2020-06-21 18:06] LABS: Urine Bacteria Absent (Absent); Urine Red Blood Cell Absent (Absent); Urine Squamous Epithelial Cell Present (Absent); Urine White Blood Cell 1+(6-10/hpf) (Absent)
[2020-06-21] MEDS ORDERED: Labetalol IV 5 MG/ML 20 ml VIAL IV PUSH ONE (21:46)
[2020-06-22] MEDS: Enoxaparin 30 MG/0.3 ML SYR SUBCUT SCH ×2 (00:20→21:41)
[2020-06-22] MEDS ORDERED: Insulin GLARGINE 100 un/ml 10 ml VIAL SUBCUT SCH (09:00)
[2020-06-22] MEDS ORDERED: Insulin GLARGINE 100 un/ml 10 ml VIAL SUBCUT ONE (09:11)
[2020-06-22] MEDS: Aspirin EC 81 mg TAB.EC (enteric coated) PO SCH (09:27)
[2020-06-22] MEDS ORDERED: Insulin GLARGINE 100 un/ml 10 ml VIAL ONE (10:15)
[2020-06-22] MEDS ORDERED: LORazepam 2 mg VIAL 1 ml IV PUSH ONE (12:00)
[2020-06-22] MEDS ORDERED: Lorazepam PYXIS KEY PRN (12:00)
[2020-06-22] MEDS: hydrALAZINE 20 mg/ml 1 ML Vial IV IV SLOW PU PRN ×2 (12:20→17:49)
[2020-06-22] MEDS ORDERED: Ondansetron 4 mg VIAL 2 MG/ML 2 ml VIAL IV PRN (15:07)
[2020-06-22] MEDS ORDERED: Ondansetron 4 mg VIAL 2 MG/ML 2 ml VIAL ONE ×2 (15:13→18:30)
[2020-06-22] MEDS ORDERED: Lorazepam PYXIS KEY ONE (15:29)
[2020-06-22] MEDS ORDERED: LORazepam 2 mg VIAL 1 ml ONE (15:30)
[2020-06-22] MEDS ORDERED: Ondansetron 4 mg VIAL 2 MG/ML 2 ml VIAL IV ONE (18:28)
[2020-06-22] MEDS ORDERED: Labetalol IV 5 MG/ML 20 ml VIAL IV PUSH ONE (18:54)
[2020-06-22] MEDS ORDERED: Labetalol IV 5 MG/ML 20 ml VIAL ONE (19:05)
[2020-06-23 05:57] LABS: ABS Lymphocytes 1.6 10^3/ul (1.0-4.8); ABS Monocytes 0.5 10^3/ul (0-0.8); ABS Neutrophils 4.5 10^3/ul (1.5-7.7); Hematocrit 40 % (42-52); Hemoglobin 13.1 g/dL (14.0-18.0); Lymphocyte % 23.4 %; Mean Corpuscular HGB Conc 33 g/dL (31-36); Mean Corpuscular Hemoglobin 30 pg (27-31); Mean Corpuscular Volume 92 fL (80-94); Mean Platelet Volume 7.5 fL (7.4-10.4); Nucleated Red Blood Cells % 0.1; Platelet Count 259 10^3/uL (150-450); Red Blood Count 4.35 10^6 /uL (4.18-5.48); Red Cell Distribution Width 14 % (10-15); White Blood Count 6.7 10^3/uL (3.5-10.8)
[2020-06-23 07:28] LABS: BUN/Creatinine Ratio 10.9 (8-20); Calcium 8.6 mg/dL (8.6-10.3); EGFR African American 63.7 (>60); EGFR Non-African American 52.7 (>60); Potassium 3.6 mmol/L (3.5-5.0)
[2020-06-23] MEDS ORDERED: Insulin GLARGINE 100 un/ml 10 ml VIAL SUBCUT SCH (09:00)
[2020-06-23] MEDS: Insulin GLARGINE 100 un/ml 10 ml VIAL SUBCUT SCH (09:26)
[2020-06-23] MEDS: Aspirin EC 81 mg TAB.EC (enteric coated) PO SCH (09:27)
[2020-06-24 05:51] LABS: ABS Lymphocytes 1.4 10^3/ul (1.0-4.8); ABS Monocytes 0.4 10^3/ul (0-0.8); ABS Neutrophils 3.2 10^3/ul (1.5-7.7); Eosinophil % 0.1 %; Hematocrit 39 % (42-52); Mean Corpuscular HGB Conc 33 g/dL (31-36); Mean Corpuscular Hemoglobin 30 pg (27-31); Mean Corpuscular Volume 91 fL (80-94); Mean Platelet Volume 7.2 fL (7.4-10.4); Platelet Count 247 10^3/uL (150-450); Red Blood Count 4.27 10^6 /uL (4.18-5.48); Red Cell Distribution Width 14 % (10-15); White Blood Count 5.1 10^3/uL (3.5-10.8)
[2020-06-24 06:10] LABS: BUN/Creatinine Ratio 17.2 (8-20); Calcium 8.5 mg/dL (8.6-10.3); EGFR African American 72.8 (>60); EGFR Non-African American 60.2 (>60); Magnesium 1.9 mg/dL (1.9-2.7); Potassium 4.1 mmol/L (3.5-5.0)
[2020-06-24] MEDS: Aspirin EC 81 mg TAB.EC (enteric coated) PO SCH (08:37)
[2020-06-24] MEDS: Insulin GLARGINE 100 un/ml 10 ml VIAL SUBCUT SCH (08:41)
[2020-06-24 11:43] VITALS: BP 138/66
== END 2020-06-24 16:00 | DRG 861 ==
LOC: ED 15:40 → MEDTELE 21:51
PROVIDERS: ADMIT Internal Medicine; ATTEND Internal Medicine

== ENCOUNTER 2022-01-05 15:56 | Observation (INO) ==
[2022-01-05 17:20] LABS: ABS Lymphocytes 1.7 10^3/ul (1.0-4.8); ABS Monocytes 0.3 10^3/ul (0-0.8); ABS Neutrophils 2.7 10^3/ul (1.5-7.7); Eosinophil % 0.2 %; Hematocrit 41 % (42-52); Hemoglobin 13.5 g/dL (14.0-18.0); Lymphocyte % 36.1 %; Mean Corpuscular HGB Conc 33 g/dL (31-36); Mean Corpuscular Hemoglobin 30 pg (27-31); Mean Corpuscular Volume 91 fL (80-94); Mean Platelet Volume 7.5 fL (7.4-10.4); Platelet Count 263 10^3/uL (150-450); Red Blood Count 4.54 10^6 /uL (4.18-5.48); Red Cell Distribution Width 13 % (10-15); White Blood Count 4.7 10^3/uL (3.5-10.8)
[2022-01-05 17:35] LABS: Activated Partial Thrombo Time 39.2 seconds (26.0-38.0); INR 1.06 (0.89-1.11)
[2022-01-05 17:54] LABS: ALT 19 U/L (7-52); AST 19 U/L (13-39); Albumin 4.3 g/dL (3.2-5.2); Albumin/Globulin Ratio 1.5 (1-3); Alkaline Phosphatase 77 U/L (35-149); Anion Gap 7 mmol/L (2-11); Blood Urea Nitrogen 15 mg/dL (6-24); CO2 Carbon Dioxide 28 mmol/L (22-32); Calcium 9.5 mg/dL (8.6-10.3); Chloride 101 mmol/L (101-111); Creatine Kinase 145 U/L (10-223); Globulin 2.9 g/dL (2-4); Glucose 120 mg/dL (70-100); Magnesium 1.8 mg/dL (1.9-2.7); Sodium 136 mmol/L (135-145); Total Protein 7.2 g/dL (6.4-8.9); eGFR CKD-EPI 69.6 (>60)
[2022-01-05] MEDS ORDERED: Lactated Ringers 1000 ml BAG 1,000 ML IV ONE (17:54)
[2022-01-05 18:00] LABS: High Sens Troponin Baseline < 3 pg/mL (<20)
[2022-01-05 18:03] LABS: T4, Total 10.44 mcg/dL (6.09-12.23)
[2022-01-05 18:07] LABS: TSH Ultra Thyroid Stim Horm 1.24 mcIU/mL (0.34-5.60)
[2022-01-05 18:39] LABS: High Sensitivity Troponin 1 Hr < 3 pg/mL (<20)
[2022-01-05] MEDS ORDERED: Dextrose 50% Syringe 50 ml 25 GM/50 ML SYRINGE IV PUSH PRN (20:23)
[2022-01-05] MEDS ORDERED: hydrALAZINE 20 mg/ml 1 ML Vial IV IV SLOW PU ONE (21:11)
[2022-01-05] MEDS: Polyethylene Glycol 3350 17 GM PACKET PO SCH (21:12)
[2022-01-05 23:21] LABS: Carbamazepine < 2.0 mcg/mL (4.0-12.0)
[2022-01-06 04:41] LABS: ABS Lymphocytes 1.3 10^3/ul (1.0-4.8); ABS Monocytes 0.4 10^3/ul (0-0.8); ABS Neutrophils 3.1 10^3/ul (1.5-7.7); Eosinophil % 0.3 %; Hematocrit 39 % (42-52); Hemoglobin 12.6 g/dL (14.0-18.0); Lymphocyte % 27.7 %; Mean Corpuscular HGB Conc 32 g/dL (31-36); Mean Corpuscular Hemoglobin 29 pg (27-31); Mean Corpuscular Volume 90 fL (80-94); Mean Platelet Volume 7.4 fL (7.4-10.4); Nucleated Red Blood Cells % 0.1; Platelet Count 237 10^3/uL (150-450); Red Blood Count 4.35 10^6 /uL (4.18-5.48); Red Cell Distribution Width 13 % (10-15); White Blood Count 4.8 10^3/uL (3.5-10.8)
[2022-01-06 04:47] LABS: INR 1.18 (0.89-1.11)
[2022-01-06 05:10] LABS: Albumin 3.7 g/dL (3.2-5.2); Albumin/Globulin Ratio 1.5 (1-3); Calcium 9.2 mg/dL (8.6-10.3); Globulin 2.4 g/dL (2-4); Potassium 3.6 mmol/L (3.5-5.0); Total Bilirubin 0.4 mg/dL (0.2-1.0); Total Protein 6.1 g/dL (6.4-8.9); eGFR CKD-EPI 66.2 (>60)
[2022-01-06] MEDS ORDERED: HYDROcodone/ACETAMIN 5/325 mg TAB PO PRN (05:51)
[2022-01-06 07:35] LABS: HDL Cholesterol 32.6 mg/dL
[2022-01-06] MEDS ORDERED: Regadenoson 0.4 MG/5 ML SYRINGE ONE (07:49)
[2022-01-06] MEDS ORDERED: Aminophylline 25 MG/ML VIAL ONE (07:50)
[2022-01-06] MEDS ORDERED: Aspirin EC 81 mg TAB.EC (enteric coated) PO SCH (09:00)
[2022-01-06] MEDS: Polyethylene Glycol 3350 17 GM PACKET PO SCH (10:53)
[2022-01-06] MEDS ORDERED: hydrALAZINE 20 mg/ml 1 ML Vial IV IV SLOW PU ONE (15:07)
[2022-01-06] MEDS ORDERED: Lidocaine PATCH 5% PATCH TRANSDERM ONE (16:20)
[2022-01-06] MEDS ORDERED: Labetalol IV 5 MG/ML 20 ml VIAL IV PUSH ONE (17:30)
[2022-01-06 18:15] VITALS: BP 178/104
== END 2022-01-06 18:13 | disposition home or self-care (01) ==
LOC: ED 15:56 → EDHOLD 15:56 → SUATTDRO 19:09 → EDHOLD 01-06 18:13
PROVIDERS: ADMIT Hospitalist; ATTEND Hospitalist